=== PATIENT | female | born 1945 | race Caucasian/White ===

== ENCOUNTER → 2016-08-26 | Day surgery (SDC) | payer OTHER ==
[2016-08-06 11:12] VITALS: Ht 160 cm; Wt 42.7 kg
[~2016-08-26] VITALS: Ht 160 cm; Wt 42.7 kg
[~2016-08-26] MED LIST: 500ML BSS 0.3ML EPI 1:1000PF IRRIG ONE; ACETAMINOPHEN 325 MG TAB PO PRN; AMVISC PLUS 0.8ML SYRINGE INT OCU ONE; ATROPINE SULFATE 0.1 MG/ML 5ML SYR IV PRN; CALC-388 PO; ENDOCOAT 0.85ML SYRINGE INT OCU ONE; ESCI10TA17 PO; EpHEDrine SULFATE INJ 50 MG/ML AMP IV PRN; EpINEphrine INJ 1MG/ML AMP 1 MG/ML AMP ONE; LACTATED RINGER'S 1000ML 500 ML IV SCH; LEVA45AE INH; LIDOCAINE 4% OP SOLN DROP CHARGE ONE; LIDOCAINE 4% OP SOLN DROP CHARGE OPL SCH; LIDOCAINE HCL 1% MPF 2 ML VIAL ONE; LSN/10125 PO; MIDAZOLAM HCL 1 MG/ML 2ML VIAL ONE; MIX: 4ML BSS 1ML EPI 1:1000 PF TOP ONE; MOME100A INH; MOXIFLOXACIN OPH SOLN PER DROP CHARGE ONE; MULT-506 PO; NURSING VERBAL MED ORDER ONE; PANT40TA PO; POVIDONE-IODINE OP SOLN 30 ML BTL ONE; PROPARACAINE 0.5% OP SOLN PER DROP CHARGE OPL SCH; RISP1TAB68 PO; SPRIN/30 INH; SULF800T23 PO; TOBRAMYCIN/DEXAMETHASONE OPH OINT PER APPLN CHARGE ONE
[2016-08-26] MEDS: PHENYLEPHRINE HCL 2.5% OP SOLN PER DROP CHARGE OPL SCH ×3 (11:04→11:14)
[2016-08-26] MEDS: TROPICAMIDE 1% OP SOLN PER DROP CHARGE OPL SCH ×3 (11:05→11:15)
[2016-08-26] MEDS: CYCLOPENTOLATE HCL 1% OP SOLN PER DROP CHARGE OPL SCH ×3 (11:06→11:16)
[2016-08-26] MEDS: MOXIFLOXACIN OPH SOLN PER DROP CHARGE OPL SCH ×3 (11:07→11:17)
--- NOTE | 2016-08-26 11:25 | History & Physical Bridge - SC ---
H&P Re-Evaluation Bridge Note: I have examined the patient, reviewed the History & Physical and in the interval since the performance of the History & Physical I have noted the following changes of clinical significance: No changes noted. Left eye cataract surgery.
--- NOTE | 2016-08-26 12:31 | [facility] Post Operative Brief Note ---
Immediate Operative Summary Operative Date Aug 26, 2016. Pre-Operative Diagnosis Cataract Left Eye Post-Operative Diagnosis same as preop Procedure(s) Performed Left Cataract Phacoemulsification With Intraocular Lens Implant Surgeon Dr. Ko Oil Heaterman Surgeon(s) none Estimated Blood Loss 0ml Findings left cataract Specimens none per surgeon Complication(s) None Disposition
--- NOTE | 2016-08-26 12:32 | Anesthesia Progress Nt - [facility] ---
Anesthesia Post Op Note Date & Time Aug 26, 2016 at 12:31 Vital Signs Pain Intensity: 0 Vital Signs Past 12 Hours Date Time Temp Pulse Resp B/P (MAP) Pulse Ox O2 Delivery O2 Flow Rate FiO2 08/26/16 10:43 36.7 62 20 191/80 (117) 92 Room Air 179/81 (113) Notes Mental Status: alert / awake / arousable, participated in evaluation Pt Amnestic to Procedure: Yes Nausea / Vomiting: adequately controlled Pain: adequately controlled Airway Patency, RR, SpO2: stable & adequate BP & HR: stable & adequate Hydration State: stable & adequate Anesthetic Complications: no major complications apparent
--- NOTE | 2016-08-26 12:32 | [facility] Operative Report ---
Operative Report Date of Service Aug 26, 2016. Operative Report Phaco with monofocal IOL DATE OF OPERATION: 08/26/16 PREOPERATIVE DIAGNOSIS: Senile nuclear cataract, left eye POSTOPERATIVE DIAGNOSIS: Senile nuclear cataract, left eye PROCEDURE PERFORMED: Phacoemulsification with intraocular lens implantation, left eye SURGEON: Dr. Mars Ko ANESTHESIA: Topical with 1% intracameral lidocaine and monitored anesthesia care COMPLICATIONS: None DESCRIPTION OF PROCEDURE: After positively identifying the patient both verbally and by wristband in the preoperative area, the left eye was marked as the operative eye. The patient was then brought back to the operating room by the anesthesia and nursing staff where they were given a drop of Lidocaine and betadine into the operative eye. They were then sterilely prepped and draped in the standard fashion typical for ophthalmic surgery. Steri-strips were placed along the upper eyelids to keep the lashes back, and a lid speculum was placed into the operative eye. At this point, a documented time out was performed with members of the ophthalmology, nursing, and anesthesia staffs all agreeing upon the correct patient, correct location for surgery, correct procedure, and correct type and power of intraocular lens to be implanted. The microscope was then swung into position. First, a paracentesis wound was made using a sideport blade. Then, in sequence, 1% preservative-free lidocaine followed by Endocoat viscoelastic was injected into the anterior chamber. Next , the main incision was made with a keratome blade in triplanar fashion. A Malyugin ring was inserted due to poor pupil dilation. A sharp cystotome was introduced into the eye and used to create a tear in the anterior capsule, which was directed into a continuous curvilinear capsulorrhexis using Utrata forceps. Hydrodissection was then performed with BSS on a flat-tip cannula. Next, the phacoemulsification handpiece was introduced into the eye and used to remove the nucleus in a [id number] fashion. This was done without complication and then the irrigation-aspiration handpiece was introduced into the eye and used to remove all remaining cortical and epinuclear material. Amvisc was then injected into the anterior chamber as well as into the capsular bag and using the lens injector system, an MX60 22.0 D lens, serial number [id number], and expiration date 03/2019 was injected into the capsular bag and rotated into the correct position. The Malyugin ring was removed. Next, the irrigation-aspiration handpiece was used to remove all remaining Amvisc. BSS was used to hydrate the main wound, and then BSS was injected into the paracentesis site to reach physiologic pressure and then the main wound was checked and found to be watertight. The patient was given drops of Vigamox and Tobradex ointment into the operative eye, and then the surrounding area was cleaned and dried. A clear plastic shield was placed over the eye and the patient was then sat up and taken from the operating room by the anesthesia staff having tolerated the procedure well and suffering no complications. DISPOSITION: The patient was returned to the recovery room in stable condition. I attest to the content of the Intraoperative Record and any orders documented therein. Any exceptions are noted below.
--- NOTE | 2016-08-26 12:33 | Discharge Instructions-SurgCtr ---
Discharge Instructions Date of Service Aug 26, 2016. Visit Reason for Visit: Left Cataract Discharge Discharge Diagnosis / Problem: left cataract Discharge Goals Goal(s): Decrease discomfort, Improve function Activity Recommendations Activity Limitations: as noted below Anesthesia . Post Anesthesia Instructions: If you have had General Anesthesia or IV Sedation: * Do not drive today. * Resume driving when surgeon permits. * Do not make important decisions or sign legal documents today. * Call surgeon for: 1. Temperature elevations greater than 101 degrees F. 2. Uncontrollable pain. 3. Excessive bleeding. 4. Persistent nausea and vomiting. 5. Medication intolerance (nausea, vomiting or rash). * For nausea and vomiting use only clear liquids such as: tea, soda, bouillon until nausea subsides, then gradually increase diet as tolerated. * If you have any concerns or questions, call your surgeon's office. If physician is unavailable and it is an emergency, call 911 or go to the nearest emergency room. . Instructions / Follow-Up Instructions / Follow-Up ACTIVITY RECOMMENDATIONS: * Light activities. * You may walk outside, read, watch television. * You may notice redness on the white part of the eye and some blurry vision - this is normal. MEDICATIONS: Resume previous medications unless instructed otherwise by your surgeon. Start all eye drops at 2:30 pm today: * Eye drops (today): Durezol - one drop in operative eye 4 times daily Polytrim - one drop in operative eye every 2 hours while awake SPECIAL CARE INSTRUCTIONS: * Tape plastic shield over eye to sleep at night. Call your doctor at with any concerns or problems. FOLLOW UP VISIT: Follow-up with Dr Ko at [place] office as scheduled. Diet Recommendations Home Diet: no limitations Procedures Procedures Performed: Left Cataract Phacoemulsification With Intraocular Lens Implant Pending Studies Studies pending at discharge: no Medical Emergencies . Who to Call and When: Medical Emergencies: If at any time you feel your situation is an emergency, please call 911 immediately. . Non-Emergent Contact Non-Emergency issues call your: Surgeon . . "Provider Documentation" section prepared by Mars Ko. .
[2016-08-26 13:07] VITALS: BP 137/68; PULSE 77; TEMP 36.7; O2SAT 95
== END | disposition home or self-care (01) ==
LOC: X.SURG 10:24
PROVIDERS: ATTEND Ophthalmology
DX: H25.12 Age-related nuclear cataract, left eye (principal); I10 Essential (primary) hypertension; J44.9 Chronic obstructive pulmonary disease, unspecified; F41.9 Anxiety disorder, unspecified; F32.9 Major depressive disorder, single episode, unspecified; Z68.1 Body mass index [BMI] 19.9 or less, adult

== ENCOUNTER → 2016-09-30 | Day surgery (SDC) | payer OTHER ==
[2016-09-15 15:57] VITALS: Ht 160 cm; Wt 42.7 kg
[~2016-09-30] VITALS: Ht 160 cm; Wt 42.7 kg
[~2016-09-30] MED LIST changes: +BSS FLUSH ONE; +CYCLOPENTOLATE HCL 1% OP SOLN PER DROP CHARGE OPR ONE; +FENTANYL CITRATE INJ 50 MCG/1 ML 2 ML VIAL IV PRN; +FLUMAZENIL 0.1 MG/1 ML 10 ML VIAL IV PRN; +HYDROmorphone INJ 2 MG/ML SYR/VIAL IV PRN; +LABETALOL HCL IV 5 MG/ML 20ML IV PRN; -LIDOCAINE 4% OP SOLN DROP CHARGE OPL SCH; +LIDOCAINE 4% OP SOLN DROP CHARGE OPR SCH; +MEPERIDINE HCL 25 MG/ML CARP IV PRN; +NALOXONE HCL 0.4 MG/1 ML VIAL/CARP IV PRN; +ONDANSETRON INJ 2 MG/ML 2 ML VIAL IV PRN; +PHENYLEPHRINE 100MCG/ML 5ML SYR IV PRN; +PHENYLEPHRINE HCL 2.5% OP SOLN PER DROP CHARGE OPR ONE; -PROPARACAINE 0.5% OP SOLN PER DROP CHARGE OPL SCH; +PROPARACAINE 0.5% OP SOLN PER DROP CHARGE OPR SCH; -SULF800T23 PO; +TROPICAMIDE 1% OP SOLN PER DROP CHARGE OPR ONE
[2016-09-30] MEDS: PHENYLEPHRINE HCL 2.5% OP SOLN PER DROP CHARGE OPR SCH ×3 (08:12→08:22)
[2016-09-30] MEDS: TROPICAMIDE 1% OP SOLN PER DROP CHARGE OPR SCH ×3 (08:13→08:23)
[2016-09-30] MEDS: CYCLOPENTOLATE HCL 1% OP SOLN PER DROP CHARGE OPR SCH ×3 (08:14→08:24)
[2016-09-30] MEDS: MOXIFLOXACIN OPH SOLN PER DROP CHARGE OPR SCH ×3 (08:15→08:25)
--- NOTE | 2016-09-30 08:25 | History & Physical Bridge - [place] ---
H&P Re-Evaluation Bridge Note: I have examined the patient, reviewed the History & Physical and in the interval since the performance of the History & Physical I have noted the following changes of clinical significance: No changes noted. Right eye cataract surgery.
--- NOTE | 2016-09-30 09:32 | [facility] Post Operative Brief Note ---
Immediate Operative Summary Operative Date Sep 30, 2016. Pre-Operative Diagnosis Cataract Right Eye Post-Operative Diagnosis Same Procedure(s) Performed Right Cataract Phacoemulsification With Intraocular Lens Implant Surgeon Dr. Ko Blade Balancer Surgeon(s) None Estimated Blood Loss 0 Findings right cataract Specimens None Complication(s) None Disposition
[2016-09-30 09:34] VITALS: TEMP 36.2
--- NOTE | 2016-09-30 09:34 | [facility] Operative Report ---
Operative Report Date of Service Sep 30, 2016. Operative Report Phaco with monofocal IOL DATE OF OPERATION: 09/30/16 PREOPERATIVE DIAGNOSIS: Senile nuclear cataract, right eye POSTOPERATIVE DIAGNOSIS: Senile nuclear cataract, right eye PROCEDURE PERFORMED: Phacoemulsification with intraocular lens implantation, right eye SURGEON: Dr. Mars Ko ANESTHESIA: Topical with 1% intracameral lidocaine and monitored anesthesia care COMPLICATIONS: None DESCRIPTION OF PROCEDURE: After positively identifying the patient both verbally and by wristband in the preoperative area, the right eye was marked as the operative eye. The patient was then brought back to the operating room by the anesthesia and nursing staff where they were given a drop of Lidocaine and betadine into the operative eye. They were then sterilely prepped and draped in the standard fashion typical for ophthalmic surgery. Steri-strips were placed along the upper eyelids to keep the lashes back, and a lid speculum was placed into the operative eye. At this point, a documented time out was performed with members of the ophthalmology, nursing, and anesthesia staffs all agreeing upon the correct patient, correct location for surgery, correct procedure, and correct type and power of intraocular lens to be implanted. The microscope was then swung into position. First, a paracentesis wound was made using a sideport blade. Then, in sequence, 1% preservative-free lidocaine followed by Endocoat viscoelastic was injected into the anterior chamber. Next , the main incision was made with a keratome blade in triplanar fashion. A Malyugin ring was inserted due to poor pupil dilation. A sharp cystotome was introduced into the eye and used to create a tear in the anterior capsule, which was directed into a continuous curvilinear capsulorrhexis using Utrata forceps. Hydrodissection was then performed with BSS on a flat-tip cannula. Next, the phacoemulsification handpiece was introduced into the eye and used to remove the nucleus in a [id number] fashion. This was done without complication and then the irrigation-aspiration handpiece was introduced into the eye and used to remove all remaining cortical and epinuclear material. Amvisc was then injected into the anterior chamber as well as into the capsular bag and using the lens injector system, an MX60 22.5 D lens, serial number [id number], and expiration date 12/2018 was injected into the capsular bag and rotated into the correct position. The Malyugin ring was removed. Next, the irrigation-aspiration handpiece was used to remove all remaining Amvisc. BSS was used to hydrate the main wound, and then BSS was injected into the paracentesis site to reach physiologic pressure and then the main wound was checked and found to be watertight. The patient was given drops of Vigamox and Tobradex ointment into the operative eye, and then the surrounding area was cleaned and dried. A clear plastic shield was placed over the eye and the patient was then sat up and taken from the operating room by the anesthesia staff having tolerated the procedure well and suffering no complications. DISPOSITION: The patient was returned to the recovery room in stable condition. I attest to the content of the Intraoperative Record and any orders documented therein. Any exceptions are noted below.
--- NOTE | 2016-09-30 09:35 | Discharge Instructions-SurgCtr ---
Discharge Instructions Date of Service Sep 30, 2016. Visit Reason for Visit: Right Cataract Discharge Discharge Diagnosis / Problem: right cataract Discharge Goals Goal(s): Decrease discomfort, Improve function Activity Recommendations Activity Limitations: as noted below Anesthesia . Post Anesthesia Instructions: If you have had General Anesthesia or IV Sedation: * Do not drive today. * Resume driving when surgeon permits. * Do not make important decisions or sign legal documents today. * Call surgeon for: 1. Temperature elevations greater than 101 degrees F. 2. Uncontrollable pain. 3. Excessive bleeding. 4. Persistent nausea and vomiting. 5. Medication intolerance (nausea, vomiting or rash). * For nausea and vomiting use only clear liquids such as: tea, soda, bouillon until nausea subsides, then gradually increase diet as tolerated. * If you have any concerns or questions, call your surgeon's office. If physician is unavailable and it is an emergency, call 911 or go to the nearest emergency room. . Instructions / Follow-Up Instructions / Follow-Up ACTIVITY RECOMMENDATIONS: * Light activities. * You may walk outside, read, watch television. * You may notice redness on the white part of the eye and some blurry vision - this is normal. MEDICATIONS: Resume previous medications unless instructed otherwise by your surgeon. Start all eye drops at 11:30 am today: * Eye drops (today): Durezol - one drop in operative eye 4 times daily Polytrim - one drop in operative eye every 2 hours while awake SPECIAL CARE INSTRUCTIONS: * Tape plastic shield over eye to sleep at night. Call your doctor at with any concerns or problems. FOLLOW UP VISIT: Follow-up with Dr Ko at [place] office as scheduled. Diet Recommendations Home Diet: no limitations Procedures Procedures Performed: Right Cataract Phacoemulsification With Intraocular Lens Implant Pending Studies Studies pending at discharge: no Medical Emergencies . Who to Call and When: Medical Emergencies: If at any time you feel your situation is an emergency, please call 911 immediately. . Non-Emergent Contact Non-Emergency issues call your: Surgeon . . "Provider Documentation" section prepared by Mars Ko. .
[2016-09-30 09:54] VITALS: BP 167/84; PULSE 79; O2SAT 94
--- NOTE | 2016-09-30 09:59 | Anesthesia Progress Nt - [facility] ---
Anesthesia Post Op Note Date & Time Sep 30, 2016 at 09:59 Vital Signs Pain Intensity: 0 Vital Signs Past 12 Hours Date Time Temp Pulse Resp B/P (MAP) Pulse Ox O2 Delivery O2 Flow Rate FiO2 09/30/16 09:34 36.2 80 16 161/79 (106) 99 Room Air 09/30/16 08:03 36.8 75 20 153/85 (107) 93 Room Air Notes Mental Status: alert / awake / arousable, participated in evaluation Pt Amnestic to Procedure: Yes Nausea / Vomiting: adequately controlled Pain: adequately controlled Airway Patency, RR, SpO2: stable & adequate BP & HR: stable & adequate Hydration State: stable & adequate Anesthetic Complications: no major complications apparent
== END | disposition home or self-care (01) ==
LOC: X.SURG 07:47
PROVIDERS: ATTEND Ophthalmology
DX: H25.11 Age-related nuclear cataract, right eye (principal); I10 Essential (primary) hypertension; J44.9 Chronic obstructive pulmonary disease, unspecified; F32.9 Major depressive disorder, single episode, unspecified; Z87.891 Personal history of nicotine dependence; Z79.899 Other long term (current) drug therapy

== ENCOUNTER 2020-03-04 09:54 | Inpatient (IN) ==
--- OUTSIDE RECORDS SUMMARY | 2020-03-04 09:57 | External Medical Summary | Continuity of Care Document ---
:1945 Author Name Serena Tinsley, Provider Address Unavailable Unavailable , Care Team Providers Name Role Phone Nellie Tinsley, Andi Unavailable [email or web address] Unavailable Unavailable Problems Active medical history not documented Allergies and Adverse Reactions Allergy history not documented Medications Medications not documented Procedures Procedures not documented Immunizations Immunizations not documented Plan of Treatment Planned Observations Planned Goals not documented Results No Known Results Results not documented
[2020-03-04] MEDS ORDERED: DEXAMETHASONE SOD INJ 10 MG/ML VIAL IV ONE (10:07)
--- NOTE | 2020-03-04 10:19 | Emergency Department Note ---
Impression & Plan COPD (chronic obstructive pulmonary disease), Hypoxia, COVID-19 ED Provider Note NAME: JOEY RAI AGE: 74 SEX: F : 1945 ARRIVES VIA: Ambulance INFORMANT: Patient ED PROVIDER(S): Luis Eduardo Moncada DO CHIEF COMPLAINT: hypoxia HPI: Patient is a 74-year-old female with a past medical history of COPD that presents the ER referred in from [facility]. She presented there as she lives with her grandson who has had multiple people around him test positive for Covid. She notes that she is always short of breath that has not significantly changed. She denies any chest pain. No belly pain, nausea, vomiting or diarrhea. She has a cough but it is unchanged. No runny nose. No loss of taste or smell. She denies any other exacerbating or remitting factors. She was sent in by ambulance from [facility] that she tested positive for Covid there and was hypoxic at 77% on room air. She admits that she is prescribed oxygen but never got it filled and has no oxygen at home. ROS: See above HPI for pertinent positives & negatives. A total of 10 systems reviewed and were otherwise negative. PAST MEDICAL HISTORY:See Below PAST SURGICAL HISTORY:See Below FAMILY HISTORY:See Below SOCIAL HISTORY:See Below HOME MEDICATIONS:See Below ALLERGIES:See Below VITALS:See Below PHYSICAL EXAMINATION: GENERAL: Sitting up in bed, alert, chronically ill-appearing, cachectic, malnourished EYE EXAM: normal conjunctiva. OROPHARYNX: no exudate, no erythema, lips, buccal mucosa, and tongue normal and mucous membranes are moist NECK: supple, no nuchal rigidity, no adenopathy, non-tender LUNGS: Wheezing bilaterally. Normal chest wall mechanics HEART: no murmurs, S1 normal and S2 normal ABDOMEN: abdomen soft, non-tender, normo-active bowel sounds, no masses, no rebound or guarding. UPPER EXTREMITIES: upper extremities are grossly normal. LOWER EXTREMITIES: No pitting edema. Calves are equal bilateral NEURO EXAM: Normal sensorium, cranial nerves II-XII grossly intact, normal speech, no gross weakness of arms, no gross weakness of legs. MEDICAL DECISION MAKING: Patient is a 74-year-old female who presents the ER referred in by [facility] that she was Covid positive found to be hypoxic at 77%. IV was established bl ood work was obtained. Labs show no significant leukocytosis or anemia. INR unremarkable. D-dimer was elevated at 1500. BMP with mild hyponatremia and hypokalemia. CO2 was elevated 34. LFTs bilirubin was unremarkable. Troponin was detectable but not elevated. Lipase was unremarkable. Chest x-ray showed no focal infiltrate. CT angio of the chest shows no PEs or pneumonia. She was given a dose of IV Decadron. Previously back in 2018 she was seen in discharge on home oxygen. She never got this filled. She has no oxygen at home. Based on her symptoms I do favor that this is multifactorial and likely chronic in combination with possibly early Covid/COPD. Patient was updated bedside. Discussed with the hospitalist for further evaluation as she has no oxygen at home. Triage Nursing notes reviewed. Prior medical records reviewed Vital Signs: reviewed and remarkable for no significant abnormalities Differential diagnosis: Differential diagnoses includes but is not limited to pneumonia, bronchitis, COPD/Asthma exacerbation, pneumothorax, pulmonary embolism, congestive heart failure, acute coronary syndrome ER treatment provided: See below Diagnostics interpreted by me: ECG: Sinus rhythm rate 84 Normal axis Peak T waves QTC 458 Cardiac Monitoring: An order was placed for continuous cardiac monitoring. The monitor shows a rate of 81 with sinus rhythm. Laboratory studies: As stated above and show below. Imaging studies: CT angio of the chest shows no acute pathology Consultation(s): Discussed with [facility] hospitalist for further evaluation ED COURSE: Procedures: none Critical Care: I have personally spent 32 minutes of critical care time in the direct management of this patient. This includes bedside care, interpretation of diagnostic studies, and testing, discussion with consultants, patient, and family members, and other required patient management activities. This 32 minutes is in excess of all separately billable procedures. Past Med/Surg History Social History Smoking Status: Former smoker Tobacco Type: Cigarettes Allergies Allergies Allergy/AdvReac Type Severity Reaction Status Date / Time benzalkonium Allergy Severe EYE BURNING Verified 09/30/16 08:01 adhesive Allergy Mild RASH Verified 09/30/16 08:01 albuterol Allergy Unknown INCREASED Verified 09/30/16 08:01 HEART RATE Cephalosporins Allergy Unknown RASH Verified 09/30/16 08:01 Macrolide Antibiotics Allergy Unknown SICK TO Verified 09/30/16 08:01 STOMACH AND SEVERE DIARRHEA nickel Allergy Unknown REDNESS/SWE Verified 09/30/16 08:01 LLING sheep derived (ovine) Allergy Unknown HIVES Verified 09/30/16 08:01 fluticasone AdvReac Intermediate BLOOD Unverified 09/30/16 08:01 PRESSURE INCREASE, HEART RATE INCREASE salmeterol AdvReac Intermediate BLOOD Unverified 09/30/16 08:01 PRESSURE INCREASE, HEART RATE INCREASE EYE DROPS Allergy Unknown EYE BURNING Uncoded 08/06/16 11:06 Home Meds Home Medications Medication Instructions Recorded Confirmed fluticasone furoate-vilanterol 1 inh INHALATION DAILY 03/04/20 03/04/20 [Breo Ellipta] lisinopril-hydrochlorothiazide 1 tab PO DAILY 03/04/20 03/04/20 pantoprazole 40 mg PO DAILY 03/04/20 03/04/20 tiotropium bromide [Spiriva with 1 cap INHALATION DAILY 03/04/20 03/04/20 HandiHaler] Results & Data (ED) Vital Signs Vital Signs - 24 hr 03/04/20 10:34 03/04/20 10:41 03/04/20 10:49 Temperature 37.9 C H Temperature Source Oral Pulse Rate 87 Pulse Rate from SpO2 Sensor Respiratory Rate 20 Respiratory Effort / Characteristics Non-Labored Respiratory Depth Normal Blood Pressure 136/73 Blood Pressure Mean 94 Pulse Oximetry 96 Oxygen Delivery Method Nasal Cannula Nasal Cannula Nasal Cannula Oxygen Flow Rate 4 4 4 Sepsis Recent Fever Within 48 Hours No Sepsis New/Unexplained Change in Mental Status N/A Sepsis Action Taken by Nursing No Action Required 03/04/20 11:00 03/04/20 11:16 03/04/20 11:17 Temperature Temperature Source Pulse Rate 85 76 84 Pulse Rate from SpO2 Sensor 84 75 84 Respiratory Rate 16 16 22 Respiratory Effort / Characteristics Respiratory Depth Blood Pressure 148/77 H 139/92 Blood Pressure Mean 94 105 Pulse Oximetry 81 L 96 82 L Oxygen Delivery Method Oxygen Flow Rate Sepsis Recent Fever Within 48 Hours Sepsis New/Unexplained Change in Mental Status Sepsis Action Taken by Nursing 03/04/20 11:20 03/04/20 11:30 03/04/20 11:31 Temperature Temperature Source Pulse Rate 81 72 Pulse Rate from SpO2 Sensor 81 80 Respiratory Rate 19 22 22 Respiratory Effort / Characteristics Respiratory Depth Blood Pressure 151/95 H Blood Pressure Mean 106 Pulse Oximetry 99 99 Oxygen Delivery Method Nasal Cannula Nasal Cannula Oxygen Flow Rate 4 4 Sepsis Recent Fever Within 48 Hours Sepsis New/Unexplained Change in Mental Status Sepsis Action Taken by Nursing 03/04/20 11:40 03/04/20 11:50 03/04/20 12:00 Temperature Temperature Source Pulse Rate 76 85 85 Pulse Rate from SpO2 Sensor 81 85 85 Respiratory Rate 22 20 25 H Respiratory Effort / Characteristics Respiratory Depth Blood Pressure Blood Pressure Mean Pulse Oximetry 100 96 98 Oxygen Delivery Method Nasal Cannula Nasal Cannula Nasal Cannula Oxygen Flow Rate 4 4 4 Sepsis Recent Fever Within 48 Hours Sepsis New/Unexplained Change in Mental Status Sepsis Action Taken by Nursing Laboratory Data Result diagrams: 03/04/20 10:40 03/04/20 10:40 Lab Results 03/04/20 03/04/20 03/04/20 Range/Units 10:40 10:40 10:40 WBC 6.67 (4.8-10.8) K/uL RBC 4.16 L (4.2-5.4) M/uL Hgb 13.5 (12.0-16.0) g/dL Hct 39.8 (37-47) % MCV 95.7 (80-100) fL MCH 32.5 (25-34) pg MCHC 33.9 (32-36) g/dL RDW Std Deviation 47.2 H (36.4-46.3) fL RDW Coeff of Sandra 13.5 (11.5-14.5) % Plt Count 203 (130-400) K/uL MPV 10.3 (7.4-10.4) fL Immature Gran % (Auto) 0.1 % Neut % (Auto) 75.3 % Lymph % (Auto) 9.4 % [place] % (Auto) 15.1 % Eos % (Auto) 0.0 % Baso % (Auto) 0.1 % Neut # (Auto) 5.01 (1.4-6.5) K/uL Lymph # (Auto) 0.63 L (1.2-3.4) K/uL [place] # (Auto) 1.01 H (0.11-0.59) K/uL Eos # (Auto) 0.00 (0-0.5) K/uL Baso # (Auto) 0.01 (0-0.2) K/uL Immature Gran # (Auto) 0.01 (0.00-0.02) K/uL PT 10.9 (9.0-12.0) Seconds INR 1.0 (0.9-1.1) APTT 27.7 (21.0-31.0) Seconds PTT Ratio 1.0 D-Dimer 1550 H* (0-500) ug/L FEU Sodium 131 L (136-145) mmol/L Potassium 3.1 L (3.5-5.1) mmol/L Chloride 90 L (98-107) mmol/L Carbon Dioxide 34 H (21-32) mmol/L Anion Gap 8.0 (3-11) BUN 18 (7-18) mg/dl Creatinine 0.85 (0.6-1.2) mg/dl Est Cr Clr Drug Dosing 39.2 ml/min Est GFR ( Amer) 79.3 Est GFR (Non-Af Amer) 68.5 BUN/Creatinine Ratio 20.8 H (10-20) Glucose 83 (70-99) mg/dl Calcium 8.5 (8.5-10.1) mg/dl Total Bilirubin 0.5 (0.2-1) mg/dl AST 37 (15-37) U/L ALT 25 (12-78) U/L Alkaline Phosphatase 64 (45-117) U/L Troponin I 0.016 (0-0.045) ng/ml Total Protein 6.9 (6.4-8.2) gm/dl Albumin 3.1 L (3.4-5.0) gm/dl Globulin 3.8 (2.5-4.0) gm/dl Albumin/Globulin Ratio 0.8 L (0.9-2) Lipase 120 (73-393) U/L Specimen Hemolysis Administered Medications Discontinued Medications Dexamethasone (Dexamethasone Sod Inj 10 Mg/Ml Vial) 6 mg IV NOW ONE Stop: 03/04/20 10:08 Last Admin: 03/04/20 11:51 Dose: 6 mg Documented by: [id number] Ioversol (Optiray 320 125ml) 118 ml IV ONCE ONE Stop: 03/04/20 12:56 Last Admin: 03/04/20 12:56 Dose: 118 ml Documented by: [id number] Discharge Plan Visit Data Chief Complaint: Illness Stated Complaint: COVID+/BREATHING DIFFICULTY ED Provider: Luis Eduardo Moncada Discharge Problem: COPD (chronic obstructive pulmonary disease), Hypoxia, COVID-19 Discharge Problem: COPD (chronic obstructive pulmonary disease) Qualifiers: COPD type: unspecified COPD Qualified Code(s): J44.9 - Chronic obstructive pulmonary disease, unspecified
--- NOTE | 2020-03-04 10:26 | XRay Report ---
SINGLE VIEW CHEST CLINICAL HISTORY: Atypical chest pain. FINDINGS: An AP, portable, upright chest radiograph is compared to study dated 06/24/2015 and correlate d with chest CT dated 06/18/2015. The examination is degraded by portable technique and patient rotati on. The cardiomediastinal silhouette is unremarkable noting atherosclerotic calcification of the thor acic aorta. There are calcified mediastinal and hilar lymph nodes. Emphysema and chronic interstitial thickening is similar to previous. There is no airspace consolidation or pleural effusion. Foci of p arenchymal scarring/atelectasis are seen throughout both lungs. There are scattered calcified granulo mas. No pneumothorax is seen. The skeletal structures are osteopenic. The bony thorax is grossly inta ct. Calcified splenic granulomas are seen in the left upper quadrant. IMPRESSION: Emphysema and chronic parenchymal changes as above with no acute cardiopulmonary abnormal ity. ACT 112: Negative or not required by law. Electronically signed by: Wily Azar M.D. 03/04/2020 10:25 AM
[2020-03-04 10:55] LABS: Basophils # (auto) 0.01 K/uL (0-0.2); Basophils % (auto) 0.1 %; Hematocrit (blood only) 39.8 % (37-47); Hemoglobin 13.5 g/dL (12.0-16.0); Immature Granulocytes # (auto) 0.01 K/uL (0.00-0.02); Immature Granulocytes % (auto) 0.1 %; Lymphocytes # (auto) 0.63 K/uL (1.2-3.4); Lymphocytes % (auto) 9.4 %; Mean Corpuscular Hemoglobin 32.5 pg (25-34); Mean Corpuscular Hgb Conc 33.9 g/dL (32-36); Mean Corpuscular Volume 95.7 fL (80-100); Mean Platelet Volume 10.3 fL (7.4-10.4); Monocytes # (auto) 1.01 K/uL (0.11-0.59); Monocytes % (auto) 15.1 %; Neutrophils # (auto) 5.01 K/uL (1.4-6.5); Neutrophils % (auto) 75.3 %; Platelet Count 203 K/uL (130-400); RDW Coefficient of Variation 13.5 % (11.5-14.5); RDW Standard Deviation 47.2 fL (36.4-46.3); Red Blood Count 4.16 M/uL (4.2-5.4); White Blood Count 6.67 K/uL (4.8-10.8)
[2020-03-04 11:09] LABS: Partial Thromboplastin Time 27.7 Seconds (21.0-31.0); Prothrombin Time 10.9 Seconds (9.0-12.0)
[2020-03-04 11:11] LABS: D Dimer 1550 ug/L FEU (0-500)
[2020-03-04 11:20] LABS: Albumin Level 3.1 gm/dl (3.4-5.0); BUN Creatinine Ratio 20.8 (10-20); Calcium 8.5 mg/dl (8.5-10.1); Creatinine Clr Calc Pharmacy 39.2 ml/min; Est GFR (African American) 79.3; Est GFR (Non-African American) 68.5; Potassium 3.1 mmol/L (3.5-5.1)
[2020-03-04 11:23] LABS: Albumin Globulin Ratio 0.8 (0.9-2); Bilirubin,Total 0.5 mg/dl (0.2-1); Globulin 3.8 gm/dl (2.5-4.0); Total Protein 6.9 gm/dl (6.4-8.2); Troponin I 0.016 ng/ml (0-0.045)
[2020-03-04] MEDS ORDERED: OPTIRAY 320 125ml IV ONE (12:55)
--- NOTE | 2020-03-04 13:08 | CT Scan Report ---
CT ANGIOGRAM OF THE CHEST CLINICAL HISTORY: Shortness of breath. Positive d-dimer. COMPARISON STUDY: CT scan dated 06/18/2015, chest x-ray dated 03/04/2020 TECHNIQUE: Following the IV administration of 118 mL of Optiray-320, CT angiogram of the thorax was p erformed from the thoracic inlet to the lung bases utilizing the pulmonary embolus protocol. Images a re reviewed in the axial, sagittal, and coronal planes. IV contrast was administered without complica tion. MIP imaging was performed. A dose lowering technique was utilized adhering to the principles o f ALARA. CT DOSE: 234.31 mGycm FINDINGS: There is a multinodular thyroid. No pathologically enlarged axillary mediastinal or hilar lymph nodes were visualized. There is aneurysmal dilatation suprarenal abdominal aorta which measures 37 mm in diameter. There were no pulmonary artery filling defects to indicate acute pulmonary embolism. No pleural effusions are visualized. There is moderate pulmonary emphysema. There is right lower lobe mucus plugging and atelectasis. This finding was present in May 2015. There is a stable 8 mm right middle lobe perifissural nodule. The re is a stable 3 mm right lower lobe perifissural nodule. IMPRESSION: 1. No evidence of acute pulmonary embolism 2. Moderate pulmonary emphysema 3. Persistent multinodular thyroid gland 4. Right lower lobe mucus plugging and atelectasis 5. 37 mm abdominal aortic aneurysm. ACT 112: Negative or not required by law. Electronically signed by: Flakito Escalante M.D. 03/04/2020 1:07 PM
[2020-03-04] MEDS ORDERED: POTASSIUM CHLORIDE CRTAB 20 MEQ TABCR PO STA (13:26)
--- NOTE | 2020-03-04 13:47 | History & Physical Report ---
Date of Service March 04, 2020 Assessment & Plan (1) COVID-19: Positive covid test at [facility] earlier today, exposure from grandson who lives with her -Will have [facility] fax over documentation from today's visit for records -Continue supplemental O2, started on daily 6mg IV Dexamethasone and Remdesivir. Offered convalescent plasma -Isolation precautions (2) Hypoxia: This is a 74-year-old female with PMH of severe COPD, nocturnal hypoxia not on O2, hypertension, GERD and other medical problems listed below who presents from [facility] with positive Covid test. -Initially hypoxic at 81% on room air. Now saturating at 97% on 4 L nasal cannula in setting of COPD, Covid + diagnosis today, 03/04/20 -Has been diagnosed with nocturnal hypoxia but is not currently and has not used home O2 in the past, so difficult to assess acute vs chronic nature of hypoxia -Continue supplemental O2 (3) COPD (chronic obstructive pulmonary disease): Severe COPD documented in outpatient chart. 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 Non-compliant with home oxygen -CO2 of 34, VBG pH of 7.37, pCO2 57- chronically retaining CO2 -Continue Breo Ellipta and Spiriva inhalers -Chest CTA with right lower lobe mucus plugging and atelectasis -consult will ordered flutter valve and chest PT -Will need oxygen 2 step test and likely script for O2 prior to discharge (4) Abdominal aortic aneurysm (AAA) 35 to 39 mm in diameter: (5) GERD (gastroesophageal reflux disease): Continue Protonix DVT Ppx: SQ Lovenox Code status: FULL PCP: Formerly Dr. Robert. Will need to establish with new [facility] PCP. Dispo: Admit to COVID unit on 2E. Discharge planning ordered. Patient seen in collaboration with Dr. Boggs. Please see addendum. (6) Body mass index (BMI) less than 19 in adult: BMI 16.2. Dietitian consult placed DVT Ppx: SC Heparin SCDs Code status: Full PCP: Giselle Robert Dispo: Plan to return home once medically stable/SW consulted to help with discharge placement... Dexamethasone, Consented for convalescent Plasma, but wants to learn more about it, Vit D3, Zinc, O2, IVFs Admission and Anticipated Discharge Date Admission Date: March 04, 2020 Anticipated date of discharge: 03/07/20 History of Present Illness 74-year-old female with a past medical history of COPD/emphysema, peptic ulcer disease for which she had a perfect ulcer, hypertension who presents to the ER after testing positive for COVID. Her grandson was exposed, he lives c her and he some symptoms, so she went with him for testing where she was found positive. She has been having fevers, chills, diarrhea. She was diagnosed with O2 dependent COPD, but has not gotten her home O2 yet. She gave consent for convalescent plasma, but wants to hear more about it for receiving it. PMH-COPD, Emphysema, Perf Peptic Ulcer, HTN PSH-Stomach Surgery/Partial Gastrectomy sec to Perf peptic Ulcer FH-Mother of Brain tumor, Father of Metastatic Cancer, All children are healthy, one Dtr Murdered Soc-Lives c and Grandson Chief Complaint: covid positive test, hypoxia Primary Care Provider: NO PCP This is a 74-year-old female with PMH of severe COPD, nocturnal hypoxia not on O2, hypertension, GERD and other medical problems listed below who presents from [facility] with positive Covid test. Patient's grandson lives with him and had Covid exposure at work, so household was encouraged to get Covid tested today. Patient found to have positive Covid test and was hypoxic at 77% on room air at [facility] today. Has documented nocturnal hypoxia and has been told that she needs oxygen in the past but has been non-compliant. Denies ever using home O2. States she has felt fine up until yesterday when she had a subjective fever, chills and diarrhea. Still feeling febrile with chills today but no recurrence of diarrhea. Denies lightheadedness, malaise, weakness, cough, sore throat, shortness of breath, loss of taste or smell. No nausea, vomiting or abdominal pain. In ED, patient has temp of 37.9 C and was initially hypoxic at 81% on room air. Now saturating at 97% on 4 L nasal cannula. Denies any shortness of breath. No leukocytosis, hemoglobin normal, D-dimer elevated at 1550. Sodium of 131, potassium 3.1, chloride 90, carbon dioxide 34. Chest CTA without evidence of acute pulmonary embolism. Moderate pulmonary emphysema, persistent multinodular thyroid gland, right lower lobe mucus plugging and atelectasis and 37 mm abdo robinson aortic aneurysm. Patient started on IV Dexamethasone in ED. Discussed plan to also start Remdesivir. Discussed option of convalescent plasma, which she will discuss further with Dr. Boggs. Allergies Allergy/AdvReac Type Severity Reaction Status Date / Time benzalkonium Allergy Severe EYE BURNING Verified 09/30/16 08:01 adhesive Allergy Mild RASH Verified 09/30/16 08:01 albuterol Allergy Unknown INCREASED Verified 09/30/16 08:01 HEART RATE Cephalosporins Allergy Unknown RASH Verified 09/30/16 08:01 Macrolide Antibiotics Allergy Unknown SICK TO Verified 09/30/16 08:01 STOMACH AND SEVERE DIARRHEA nickel Allergy Unknown REDNESS/SWE Verified 09/30/16 08:01 LLING sheep derived (ovine) Allergy Unknown HIVES Verified 09/30/16 08:01 fluticasone AdvReac Intermediate BLOOD Unverified 09/30/16 08:01 PRESSURE INCREASE, HEART RATE INCREASE salmeterol AdvReac Intermediate BLOOD Unverified 09/30/16 08:01 PRESSURE INCREASE, HEART RATE INCREASE EYE DROPS Allergy Unknown EYE BURNING Uncoded 08/06/16 11:06 Home Medications Medication Instructions Recorded Confirmed Type fluticasone furoate-vilanterol 1 inh INHALATION DAILY 03/04/20 03/04/20 History [Breo Ellipta] lisinopril-hydrochlorothiazide 1 tab PO DAILY 03/04/20 03/04/20 History pantoprazole 40 mg PO DAILY 03/04/20 03/04/20 History tiotropium bromide [Spiriva with 1 cap INHALATION DAILY 03/04/20 03/04/20 History HandiHaler] Past Med/Surg History Medical History Abdominal aortic aneurysm (AAA) 35 to 39 mm in diameter COPD (chronic obstructive pulmonary disease) "severe" GERD (gastroesophageal reflux disease) Nocturnal hypoxia Surgical History H/O breast biopsy H/O colonoscopy "adenomatous polyps, repeat 1 yr/COLONOSCOPY FLEXIBLE PROXIMAL DIAGNOSTIC performed by Lonnie Ruiz MD at END[facility] 2014" H/O exploratory laparotomy "Exploratory lap, wedge excision of mass in stomack w/ FS, hemigastrectomy, truncal vagotomy, [place] I with Dr. Jimenez peptic ulcer 2003" H/O knee surgery H/O tubal ligation Family History Other Breast cancer Thyroid disorder Social History Smoking Status: Former smoker Tobacco Type: Cigarettes Number of Years Since Quit: 3; Hx Alcohol Use: Yes Alcohol Intake Frequency Comment: rare Hx Substance Use: No Review of Systems Review of Systems: At least ten systems reviewed and negative except as noted in the HPI. Physical Exam Physical Exam: ROS-No Headache, No Visual Changes, No Nausea, No Vomiting, + Fever, + Chills, No Neck Pain or Stiffness, No Chest Pain, No Palpitations, No SOB, No HAWLEY, No Cough, No Sputum, No Wheezing, No Abdominal Pain, + Diarrhea, No Hematemesis, No Hemoptysis, No Unexpected Weight Loss, No Flank pain, No Melena, No Hematochezia, No Frequency, No Urgency, No Burning, No Hematuria, No Rashes, No Diaphoresis. Appetite is Normal Physical Exam Gen-AAO x 3, NAD, febrile, Pleasant. Head-NCAT, EOMI, PERRLA, Anicteric Sclera, No Posterior Pharyngeal Erythema Neck-Supple, No JVD, No Thyromegaly, No Masses, No LAD, No Bruits Lungs-Clear to Auscultation Bilaterally, No Rales, No Rhonchi, No Wheezing, No Crepitus Chest-No S4, +S1, +S2, No S3, No Murmurs, No Rubs, No Gallops, No Ectopy Abdomen-Soft, Bowel Sounds Present, Non Tender, Non Distended, No Hepatomegaly, No Splenomegaly, No Palpable Masses, No Rebound, No Rigidity, No Guarding Musculoskeletal-Full Range of Motion Bilaterally, No CVAT Extremities-No Cyanosis, No Clubbing, No Edema Nuero-Cranial Nerves II-XII grossly intact, Motor WNL, DTRs WNL, Strength WNL, Non Focal Psych-Normal Mood Results & Data Results & Data ([facility]) Vital Signs (Past 12 Hours) Vital Signs Temp Pulse Resp BP Pulse Ox 03/04/20 12:00 85 25 H 98 03/04/20 11:50 85 20 96 03/04/20 11:40 76 22 100 03/04/20 11:31 72 22 151/95 H 99 03/04/20 11:30 81 22 99 03/04/20 11:20 19 03/04/20 11:17 84 22 82 L 03/04/20 11:16 76 16 139/92 96 03/04/20 11:00 85 16 148/77 H 81 L 03/04/20 10:34 37.9 C H 87 20 136/73 96 Laboratory Results Short CBC 03/04/20 Range/Units 10:40 WBC 6.67 (4.8-10.8) K/uL Hgb 13.5 (12.0-16.0) g/dL Hct 39.8 (37-47) % Plt Count 203 (130-400) K/uL BMP 03/04/20 10:40 Sodium 131 L Potassium 3.1 L Chloride 90 L Carbon Dioxide 34 H BUN 18 Creatinine 0.85 Glucose 83 Calcium 8.5 Cardiac Enzymes 03/04/20 Range/Units 10:40 Troponin I 0.016 (0-0.045) ng/ml Liver Function 03/04/20 Range/Units 10:40 Total Bilirubin 0.5 (0.2-1) mg/dl AST 37 (15-37) U/L ALT 25 (12-78) U/L Alkaline Phosphatase 64 (45-117) U/L Albumin 3.1 L (3.4-5.0) gm/dl Diagnostic Findings CXR: IMPRESSION: Emphysema and chronic parenchymal changes as above with no acute cardiopulmonary abnormality. Chest CTA: IMPRESSION: 1. No evidence of acute pulmonary embolism 2. Moderate pulmonary emphysema 3. Persistent multinodular thyroid gland 4. Right lower lobe mucus plugging and atelectasis 5. 37 mm abdominal aortic aneurysm. ECG Rhythm: normal sinus Code Status & VTE Plan VTE Prophylaxis Plan VTE Prophylaxis will be ordered: Yes (1) COPD (chronic obstructive pulmonary disease) COPD type: unspecified COPD Qualified Code(s): J44.9 - Chronic obstructive pulmonary disease, unspecified
[2020-03-04 14:22] LABS: Base Excess VBG 5.3 mEq/L; HCO3 VBG 32 mmol/L; PCO2 VBG 57 mmHg (38-50); PO2 VBG 30 mmHg; pH VBG 7.37 (7.36-7.41)
[2020-03-04 14:28] LABS: Oxygen Saturation VBG < 60.0 %
[2020-03-04] MEDS ORDERED: ONDANSETRON INJ 2 MG/ML 2 ML VIAL IV PRN (15:32)
[2020-03-04] MEDS ORDERED: ACETAMINOPHEN 325 MG TAB PO PRN (15:32)
[2020-03-04] MEDS ORDERED: POLYETHYLENE (MIRALAX) 17 GM PACK PO PRN (15:32)
[2020-03-04] MEDS ORDERED: lisinopril 10 MG TAB PO ONE (15:32)
[2020-03-04] MEDS ORDERED: REMDESIVIR 200 MG in SODIUM CHLORIDE 0.9% 210 ML IV STA (15:35)
[2020-03-04] MEDS ORDERED: POTASSIUM CHLORIDE 20 MEQ in SODIUM CHLORIDE 0.9% 1000ML 1,000 ML IV SCH (15:45)
[2020-03-04] MEDS: PANTOprazole 40 MG TAB PO SCH (17:07)
[2020-03-04] MEDS: CHOLECALCIFEROL 1,000 UNITS 25 MCG TAB PO SCH (17:07)
[2020-03-04] MEDS: ZINC SULFATE 220 MG CAPSULE PO SCH (17:08)
[2020-03-04] MEDS: FLUTICASONE/VILANTEROL 100/25MCG 14 PUFFS/INHALER INH SCH (17:09)
[2020-03-04] MEDS: ENOXAPARIN INJ 30 MG/0.3 ML SYR SQ SCH (21:11)
[2020-03-04] MEDS: SODIUM CHLORIDE 0.9% 10ML FLUSH IV SCH (21:12)
--- NOTE | 2020-03-05 05:29 | Electrocardiogram Report ---
Test Reason : Blood Pressure : / mmHG Vent. Rate : 084 BPM Atrial Rate : 084 BPM P-R Int : 128 ms QRS Dur : 086 ms QT Int : 388 ms P-R-T Axes : 080 081 074 degrees QTc Int : 458 ms Normal sinus rhythm Normal ECG When compared with ECG of 24-JUN-2015 14:29, No significant change was found Confirmed by Isreal Samson ([id number]) on 03/05/2020 5:29:06 AM Referred By: REFERRED SELF Confirmed By:Isreal Samson
[2020-03-05 07:05] LABS: Hemoglobin 13.3 g/dL (12.0-16.0); Mean Corpuscular Hgb Conc 32.4 g/dL (32-36); Mean Corpuscular Volume 98.6 fL (80-100); Platelet Count 186 K/uL (130-400); RDW Coefficient of Variation 13.6 % (11.5-14.5); RDW Standard Deviation 48.6 fL (36.4-46.3); Red Blood Count 4.16 M/uL (4.2-5.4)
[2020-03-05 07:33] LABS: BUN Creatinine Ratio 28.9 (10-20); Calcium 7.3 mg/dl (8.5-10.1); Creatinine Clr Calc Pharmacy 37.5 ml/min; Est GFR (Non-African American) 83.7; Potassium 3.7 mmol/L (3.5-5.1)
[2020-03-05] MEDS: FLUTICASONE/VILANTEROL 100/25MCG 14 PUFFS/INHALER INH SCH (08:17)
[2020-03-05] MEDS: ENOXAPARIN INJ 30 MG/0.3 ML SYR SQ SCH ×2 (08:17→19:37)
[2020-03-05] MEDS: UMECLIDINIUM BROMIDE 62.5MCG/BLISTER 7 PUFFS/INHALER INH SCH (08:18)
[2020-03-05] MEDS: PANTOprazole 40 MG TAB PO SCH (08:18)
[2020-03-05] MEDS: ZINC SULFATE 220 MG CAPSULE PO SCH (08:18)
[2020-03-05] MEDS: CHOLECALCIFEROL 1,000 UNITS 25 MCG TAB PO SCH (08:18)
[2020-03-05] MEDS ORDERED: dexAMETHasone 6 MG in SYRINGE 0 ML IV SCH (09:00)
--- NOTE | 2020-03-05 17:19 | Hospitalist Progress Note ---
Date of Service March 05, 2020 Assessment & Plan (1) COVID-19: Acute hypoxic acute respiratory failure for Covid pneumonia On 3 L oxygen via nasal cannula Respiratory status stable Positive covid test at [facility] earlier today, exposure from grandson who lives with her - -Continue supplemental O2, Ordered daily 6mg IV Dexamethasone with total 10 days of treatment, can be changed to p.o. on discharged IV remdesivir for 5 days treatment Continue standard droplet and and contact precaution as per COVID-19 guideline (2) Hypoxia: Hypoxemic respiratory failure/Covid 19 pneumonitis -Initially hypoxic at 81% on room air. On 3 L oxygen via nasal cannula SPO2 95% Continue supplements oxygen, will need two-step exercise uses home oxygen prior to discharge (3) COPD (chronic obstructive pulmonary disease): Severe COPD documented in outpatient chart. 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 Non-compliant with home oxygen -CO2 of 34, VBG pH of 7.37, pCO2 57- chronically retaining CO2 -Continue Breo Ellipta and Spiriva inhalers -Chest CTA with right lower lobe mucus plugging and atelectasis -pulm eval requested Incentive spirometry, dexamethasone as per COVID-19 protocol added Mucinex Will add doxycycline empirically -Will need oxygen 2 step test and likely script for O2 prior to discharge (4) Abdominal aortic aneurysm (AAA) 35 to 39 mm in diameter: (5) GERD (gastroesophageal reflux disease): Continue Protonix DVT Ppx: SQ Lovenox for COVID-19 DVT prophylaxis protocol Code status: FULL (6) Body mass index (BMI) less than 19 in adult: Severe protein-calorie malnutrition in setting of severe COPD e/b a very low BMI 13 /low body wt 33.6 kg Nutrition consult requested Disposition: Expected to be discharged home when medically stable Admission and Anticipated Discharge Date Admission Date: March 04, 2020 Subjective 3 L oxygen via nasal cannula, afebrile, feels better since admission no fever or chills vitals been stable Review of Systems Review of Systems: All systems reviewed & are unremarkable except as noted in HPI & below Physical Exam Constitutional: WD/WN, vitals as above Eyes: + anicteric sclerae ENMT: external ear and nose normal, oropharynx normal Neck: trachea midline, no thyromegaly Respiratory: + cough; no respiratory distress Auscultation: + diminished lung sounds Cardiovascular: RRR, no murmur, no edema Gastrointestinal (Abdomen): Percussion/Palpation: abdomen soft; abdomen nontender Skin: no rashes, warm and dry Neurologic: PERRL, EOMI, accommodation nl, no face palsy, no dysarthria Psychiatric: A+Ox3, euthymic affect Results & Data Results & Data ([facility]) Vital Signs (Past 12 Hours) Vital Signs Temp Pulse Resp BP Pulse Ox 03/05/20 15:25 37 C 70 16 123/70 95 03/05/20 11:28 36.9 C 72 19 120/66 97 03/05/20 08:13 36.9 C 75 18 120/62 98 (1) COPD (chronic obstructive pulmonary disease) COPD type: unspecified COPD Qualified Code(s): J44.9 - Chronic obstructive pulmonary disease, unspecified
[2020-03-05] MEDS ORDERED: REMDESIVIR 100 MG in SODIUM CHLORIDE 0.9% 230 ML IV SCH (20:00)
[2020-03-05] MEDS: guaiFENesin 600 MG TABCR PO SCH (20:37)
[2020-03-05] MEDS: SODIUM CHLORIDE 0.9% 10ML FLUSH IV SCH (20:39)
[2020-03-05] MEDS ORDERED: DOXYCYCLINE HYCLATE 100 MG CAP PO SCH (21:00)
[2020-03-06 07:05] LABS: Hematocrit (blood only) 40.4 % (37-47); Mean Corpuscular Hemoglobin 31.7 pg (25-34); Mean Corpuscular Hgb Conc 32.2 g/dL (32-36); Mean Corpuscular Volume 98.5 fL (80-100); Mean Platelet Volume 10.9 fL (7.4-10.4); Platelet Count 181 K/uL (130-400); RDW Coefficient of Variation 13.6 % (11.5-14.5); RDW Standard Deviation 48.6 fL (36.4-46.3); White Blood Count 5.33 K/uL (4.8-10.8)
[2020-03-06 07:31] LABS: BUN Creatinine Ratio 39.2 (10-20); Calcium 7.7 mg/dl (8.5-10.1); Creatinine Clr Calc Pharmacy 48.4 ml/min; Est GFR (African American) 107.3; Est GFR (Non-African American) 92.6; Potassium 3.6 mmol/L (3.5-5.1)
--- NOTE | 2020-03-06 08:54 | Pulmonary Consultation ---
Date of Consultation March 06, 2020 Assessment & Plan (1) COPD (chronic obstructive pulmonary disease): COPD type: unspecified COPD Qualified Code(s): J44.9 - Chronic obstructive pulmonary disease, unspecified (2) Hypoxia: (3) COVID-19: Impression: 74-year-old female with obstructive lung disease. PFTs are not available. She reportedly was supposed to be on oxygen at home but was not using it. She is asymptomatic but tested positive and was found to be hypoxemic although it is unclear if this is acute or chronic. She was admitted to the hospital and is doing well clinically. Recommendations: 1. COPD: The patient likely has advanced obstructive lung disease. Seems reasonable to continue Spiriva and Breo for now with as needed albuterol. There is no indication for steroids for COPD exacerbation nor is there an indication for antibiotics. 2. Covid: The patient is asymptomatic from a pulmonary perspective and I suspect that her hypoxemia is more likely related to underlying COPD than Covid given the lack of parenchymal opacities on her CT scan. As such I would not recommend remdesivir, convalescent plasma, or dexamethasone. The patient should be assessed for oxygen and this should be set up for discharge home. There is no indication for vitamin D3 doxycycline or zinc sulfate and these will be discontinued as well 3. She can follow-up in the pulmonary clinic although I would not recommend follow-up for several weeks until her Covid is allowed to clear. PFTs can be performed at some point although again I would likely delay these for several months as it is unlikely to alter management. Thanks for the opportunity of participating in the care of this patient. Feel free to contact us if we can be of additional assistance. History of Present Illness Attending Physician: Donald Gastelum MD History of Present Illness Asked by hospitalist to evaluate this patient with hypoxemia and Covid pneumonia. History is obtained from discussion with the patient as well as reviewed electronic medical record. Patient is a 74-year-old female who is supposed to be on oxygen at home and has a history of obstructive lung disease. She had a family contact who apparently was exposed to Covid and she decided to get tested. She was asymptomatic. Her Covid test was positive and she was referred to the emergency room. She was found to be hypoxemic and placed on supplemental oxygen. She was devoid of any respiratory complaints including cough, shortness of breath, chest pain. She also does not constitutional symptoms such as fevers, chills, or night sweats. She is doing well currently and seen while sitting up eating breakfast in the [facility]. She again denies any significant respiratory problems. Allergies Allergy/AdvReac Type Severity Reaction Status Date / Time benzalkonium Allergy Severe EYE BURNING Verified 09/30/16 08:01 adhesive Allergy Mild RASH Verified 09/30/16 08:01 albuterol Allergy Unknown INCREASED Verified 09/30/16 08:01 HEART RATE Cephalosporins Allergy Unknown RASH Verified 09/30/16 08:01 Macrolide Antibiotics Allergy Unknown SICK TO Verified 09/30/16 08:01 STOMACH AND SEVERE DIARRHEA nickel Allergy Unknown REDNESS/SWE Verified 09/30/16 08:01 LLING sheep derived (ovine) Allergy Unknown HIVES Verified 09/30/16 08:01 fluticasone AdvReac Intermediate BLOOD Unverified 09/30/16 08:01 PRESSURE INCREASE, HEART RATE INCREASE salmeterol AdvReac Intermediate BLOOD Unverified 09/30/16 08:01 PRESSURE INCREASE, HEART RATE INCREASE EYE DROPS Allergy Unknown EYE BURNING Uncoded 08/06/16 11:06 Home Medications Medication Instructions Recorded Confirmed Type fluticasone furoate-vilanterol 1 inh INHALATION DAILY 03/04/20 03/04/20 History [Breo Ellipta] lisinopril-hydrochlorothiazide 1 tab PO DAILY 03/04/20 03/04/20 History pantoprazole 40 mg PO DAILY 03/04/20 03/04/20 History tiotropium bromide [Spiriva with 1 cap INHALATION DAILY 03/04/20 03/04/20 History HandiHaler] Patient History Medical History Abdominal aortic aneurysm (AAA) 35 to 39 mm in diameter COPD (chronic obstructive pulmonary disease) "severe" GERD (gastroesophageal reflux disease) Nocturnal hypoxia Surgical History H/O breast biopsy H/O colonoscopy "adenomatous polyps, repeat 1 yr/COLONOSCOPY FLEXIBLE PROXIMAL DIAGNOSTIC performed by Lonnie Ruiz MD at ENDOSCOPY [facility] 2014" H/O exploratory laparotomy "Exploratory lap, wedge excision of mass in stomack w/ FS, hemigastrectomy, truncal vagotomy, [place] I with Dr. Jimenez, peptic ulcer 2003" H/O knee surgery H/O tubal ligation Family History Other Breast cancer Thyroid disorder Social History Smoking Status: Former smoker Tobacco Type: Cigarettes Smoking End Date: 2003; Number of Years Since Quit: 3; Second Hand Exposure: Yes; Tobacco Cessation Education Requested by Patient: No Hx Alcohol Use: No Hx Substance Use: No Preferred Language: Bulgarian Communication Ability: Effective Program Management Specialist Required: No Beliefs That Will Affect Care: None Current Living Situation: Spouse Other Information That Helps Us Care for You: No Feels Safe at Home: Yes Safety Concerns: Feels Safe At This Time Assistive Devices: Oxygen - Continuous Review of Systems Review of Systems: Please refer to admission H&P for full details. Physical Exam Constitutional: WD/WN, vitals as above Neck: trachea midline, no thyromegaly Respiratory: normal respiratory effort; no respiratory distress and no labored breathing Few scattered crackles Cardiovascular: RRR, no murmur, no edema Gastrointestinal (Abdomen): normal bowel sounds, soft, nontender, no hepatosplenomegaly Musculoskeletal: Extremities: extremities normal to inspection Skin: no rashes, warm and dry Neurologic: Nonfocal exam Lymphatic: no cervical lymphadenopathy Results & Data Results & Data ([facility]) Vital Signs (Past 12 Hours) Vital Signs Temp Pulse Pulse Resp BP Pulse Ox 03/06/20 07:21 37.1 C 72 17 138/68 92 03/06/20 03:24 36.6 C 67 18 126/67 94 03/06/20 00:47 67 03/05/20 22:45 36.6 C 70 16 131/79 98 Laboratory Results 03/06/20 05:57 03/06/20 05:57 Diagnostic Findings Reviewed. Chest x-ray from 03/04/2020 demonstrated hyperinflation with flattening of the hemidiaphragms. CT of the chest demonstrated no significant parenchymal opacities. Changes consistent with obstructive lung disease were identified. Abdominal aneurysm was noted. PG Care Time/CCT Total # of Minutes Spent Total Time Spent with Patient: Total time spent is greater than 50% in coordination of care (as documented) at patient's floor/unit and/or counseling patient: Coding Level of Care Code 33849 Initial Inpt Care Lvl 3 Diagnoses COPD (chronic obstructive pulmonary disease) J44.9 COPD type: unspecified COPD Hypoxia R09.02 COVID-19 U07.1
[2020-03-06] MEDS: FLUTICASONE/VILANTEROL 100/25MCG 14 PUFFS/INHALER INH SCH (09:31)
[2020-03-06] MEDS: guaiFENesin 600 MG TABCR PO SCH ×2 (09:31→20:16)
[2020-03-06] MEDS: UMECLIDINIUM BROMIDE 62.5MCG/BLISTER 7 PUFFS/INHALER INH SCH (09:31)
[2020-03-06] MEDS: PANTOprazole 40 MG TAB PO SCH (09:32)
[2020-03-06] MEDS: ENOXAPARIN INJ 30 MG/0.3 ML SYR SQ SCH ×2 (09:32→20:16)
--- NOTE | 2020-03-06 13:59 | Hospitalist Progress Note ---
Date of Service March 06, 2020 Assessment & Plan (1) COVID-19: Acute hypoxic acute respiratory failure for Covid pneumonia On 2 L oxygen via nasal cannula Respiratory status stable Positive covid test at [facility] earlier prior to admission, exposure from grandson who lives with her Continue supplemental O2 Ordered daily 6mg IV Dexamethasone for up to 10 days of treatment IV remdesivir for up to 5 days treatment Continue standard droplet and and contact precaution as per COVID-19 guideline (2) Hypoxia: Hypoxemic respiratory failure/Covid 19 pneumonitis -Initially hypoxic at 81% on room air. On 2 L oxygen currently via nasal cannula SPO2 95% Continue supplements oxygen, will need two-step exercise uses home oxygen prior to discharge (3) COPD (chronic obstructive pulmonary disease): Severe COPD documented in outpatient chart. 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 Non-compliant with home oxygen -CO2 of 34, VBG pH of 7.37, pCO2 57- chronically retaining CO2 -Continue Breo Ellipta and Spiriva inhalers -Chest CTA with right lower lobe mucus plugging and atelectasis -pulm eval requested Incentive spirometry, dexamethasone as per COVID-19 protocol added Mucinex Will add doxycycline empirically -Will need oxygen 2 step test and likely script for O2 prior to discharge (4) Abdominal aortic aneurysm (AAA) 35 to 39 mm in diameter: (5) GERD (gastroesophageal reflux disease): Continue Protonix DVT Ppx: SQ Lovenox for COVID-19 DVT prophylaxis protocol Code status: FULL (6) Body mass index (BMI) less than 19 in adult: Severe protein-calorie malnutrition in setting of severe COPD e/b a very low BMI 13 /low body wt 33.6 kg Nutrition consult requested Disposition: Expected to be discharged home when medically stable Admission and Anticipated Discharge Date Admission Date: March 04, 2020 Subjective Pt seen in follow up of covid pna. Currently on 2 L oxygen via nasal cannula, afebrile, feels better since admission no fever or chills Review of Systems Review of Systems: All systems reviewed & are unremarkable except as noted in HPI & below At least ten systems reviewed and negative except as noted in the HPI. Constitutional: no fever and no chills Respiratory: + cough (improved) and + dyspnea (improved) Cardiovascular: no chest pain and no palpitations Gastrointestinal: no abdominal pain Physical Exam Physical Exam: Constitutional: WD/WN, vitals as above Eyes: + anicteric sclerae ENMT: external ear and nose normal, oropharynx normal Neck: trachea midline, no thyromegaly Respiratory: + cough; no respiratory distress Auscultation: + diminished lung sounds Cardiovascular: RRR, no murmur, no edema Gastrointestinal (Abdomen): Percussion/Palpation: abdomen soft; abdomen nontender Skin: no rashes, warm and dry Neurologic: PERRL, EOMI, no face palsy, no dysarthria Psychiatric: A+Ox3, euthymic affect Results & Data Results & Data ([facility]) Vital Signs (Past 12 Hours) Vital Signs Temp Pulse Pulse Resp BP Pulse Ox 03/06/20 11:16 36.8 C 62 16 129/89 90 03/06/20 08:00 76 03/06/20 07:21 37.1 C 72 17 138/68 92 03/06/20 03:24 36.6 C 67 18 126/67 94 Laboratory Results 03/06/20 03/06/20 Range/Units 05:57 05:57 WBC 5.33 (4.8-10.8) K/uL RBC 4.10 L (4.2-5.4) M/uL Hgb 13.0 (12.0-16.0) g/dL Hct 40.4 (37-47) % MCV 98.5 (80-100) fL MCH 31.7 (25-34) pg MCHC 32.2 (32-36) g/dL RDW Std Deviation 48.6 H (36.4-46.3) fL RDW Coeff of Sandra 13.6 (11.5-14.5) % Plt Count 181 (130-400) K/uL MPV 10.9 H (7.4-10.4) fL Sodium 135 L (136-145) mmol/L Potassium 3.6 (3.5-5.1) mmol/L Chloride 99 (98-107) mmol/L Carbon Dioxide 31 (21-32) mmol/L Anion Gap 5.0 (3-11) BUN 22 H (7-18) mg/dl Creatinine 0.57 L (0.6-1.2) mg/dl Est Cr Clr Drug Dosing 48.4 ml/min Est GFR ( Amer) 107.3 Est GFR (Non-Af Amer) 92.6 BUN/Creatinine Ratio 39.2 H (10-20) Glucose 85 (70-99) mg/dl Calcium 7.7 L (8.5-10.1) mg/dl Medications Administered Current Inpatient Medications Acetaminophen (Acetaminophen 325 Mg Tab) 650 mg PO Q4H PRN PRN Reason: Pain or Fever Stop: 04/03/20 15:31 Enoxaparin Sodium (Enoxaparin Inj 30 Mg/0.3 Ml Syr) 30 mg SQ Q12H IVANNA Stop: 04/03/20 19:59 Last Admin: 03/06/20 09:32 Dose: 30 mg Documented by: Fluticasone/Vilanterol (Fluticasone/Vilanterol 100/25mcg 14 Puffs/Inhaler) 1 puffs INH DAILY IVANNA Stop: 04/03/20 15:59 Last Admin: 03/06/20 09:31 Dose: 1 puffs Documented by: Guaifenesin (Guaifenesin 600 Mg Tabcr) 1,200 mg PO Q12 IVANNA Stop: 04/04/20 20:59 Last Admin: 03/06/20 09:31 Dose: 1,200 mg Documented by: Ondansetron HCl (Ondansetron Inj 2 Mg/Ml 2 Ml Vial) 4 mg IV Q6H PRN PRN Reason: Nausea Stop: 04/03/20 15:31 Pantoprazole Sodium (Pantoprazole 40 Mg Tab) 40 mg PO DAILY IVANNA Stop: 04/03/20 15:44 Last Admin: 03/06/20 09:32 Dose: 40 mg Documented by: Polyethylene Glycol (Polyethylene (Miralax) 17 Gm Pack) 17 gm PO DAILY PRN PRN Reason: Constipation Stop: 04/03/20 15:31 Sodium Chloride (Sodium Chloride 0.9% 10ml Flush) 30 ml IV Q24H IVANNA Stop: 03/08/20 21:01 Last Admin: 03/05/20 20:39 Dose: 30 ml Documented by: Umeclidinium [place] (Umeclidinium [place] 62.5mcg/Blister 7 Puffs/Inhaler) 1 puffs INH DAILY IVANNA Stop: 04/04/20 08:59 Last Admin: 03/06/20 09:31 Dose: 1 puffs Documented by: (1) COPD (chronic obstructive pulmonary disease) COPD type: unspecified COPD Qualified Code(s): J44.9 - Chronic obstructive pulmonary disease, unspecified
[2020-03-06] MEDS ORDERED: dexAMETHasone 6 MG in SYRINGE 0 ML IV SCH (14:00)
[2020-03-06] MEDS ORDERED: REMDESIVIR 100 MG in SODIUM CHLORIDE 0.9% 230 ML IV ONE (20:00)
[2020-03-06] MEDS ORDERED: SODIUM CHLORIDE 0.9% 10ML FLUSH IV ONE (21:00)
[2020-03-07 05:07] LABS: Hematocrit (blood only) 40.4 % (37-47); Hemoglobin 13.3 g/dL (12.0-16.0); Mean Corpuscular Hemoglobin 32.2 pg (25-34); Mean Corpuscular Hgb Conc 32.9 g/dL (32-36); Mean Corpuscular Volume 97.8 fL (80-100); Mean Platelet Volume 10.5 fL (7.4-10.4); Platelet Count 175 K/uL (130-400); RDW Coefficient of Variation 13.4 % (11.5-14.5); RDW Standard Deviation 48.2 fL (36.4-46.3); Red Blood Count 4.13 M/uL (4.2-5.4); White Blood Count 3.66 K/uL (4.8-10.8)
[2020-03-07 05:46] LABS: BUN Creatinine Ratio 38.5 (10-20); Calcium 7.4 mg/dl (8.5-10.1); Est GFR (African American) 110.6; Est GFR (Non-African American) 95.5; Magnesium 1.6 mg/dl (1.8-2.4); Phosphorus 2.7 mg/dl (2.5-4.9); Potassium 3.6 mmol/L (3.5-5.1)
[2020-03-07] MEDS: UMECLIDINIUM BROMIDE 62.5MCG/BLISTER 7 PUFFS/INHALER INH SCH (08:22)
[2020-03-07] MEDS: FLUTICASONE/VILANTEROL 100/25MCG 14 PUFFS/INHALER INH SCH (08:22)
[2020-03-07] MEDS: ENOXAPARIN INJ 30 MG/0.3 ML SYR SQ SCH (08:23)
[2020-03-07] MEDS: guaiFENesin 600 MG TABCR PO SCH ×2 (08:24→20:14)
[2020-03-07] MEDS: PANTOprazole 40 MG TAB PO SCH (08:24)
[2020-03-07] MEDS ORDERED: MAGNESIUM SULFATE / D5W 1 GM/100 ML BAG IV ONE (10:10)
--- NOTE | 2020-03-07 10:13 | Hospitalist Progress Note ---
Date of Service March 07, 2020 Assessment & Plan (1) COVID-19: Acute hypoxic acute respiratory failure for Covid pneumonia On 2 L oxygen via nasal cannula Respiratory status stable 2 step study done - pt requires continuous 2L of suppl. O2 Positive covid test at [facility] earlier prior to admission, exposure from grandson who lives with her Continue supplemental O2 Ordered daily 6mg IV Dexamethasone for up to 10 days of treatment IV remdesivir for up to 5 days treatment Continue standard droplet and and contact precaution as per COVID-19 guideline (2) Hypoxia: Hypoxemic respiratory failure/Covid 19 pneumonitis -Initially hypoxic at 81% on room air. On 2 L oxygen currently via nasal cannula SPO2 95% Continue supplements oxygen, had 2 step study done - requires continuous 2L of O2 Pulmonary medicine consulted - believe pt's hypoxia is also related to her COPD, will need further outpt follow up (3) COPD (chronic obstructive pulmonary disease): Severe COPD documented in outpatient chart. 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 Non-compliant with home oxygen -CO2 of 34, VBG pH of 7.37, pCO2 57- chronically retaining CO2 -Continue Breo Ellipta and Spiriva inhalers -Chest CTA with right lower lobe mucus plugging and atelectasis -pulm eval requested Incentive spirometry, dexamethasone as per COVID-19 protocol added Mucinex added doxycycline empirically - 2 step test done, script for O2 prior to discharge (4) Abdominal aortic aneurysm (AAA) 35 to 39 mm in diameter: (5) GERD (gastroesophageal reflux disease): Continue Protonix Hypomagnesemia replete, start Mag oxide follow up level as outpt DVT Ppx: SQ Lovenox for COVID-19 DVT prophylaxis protocol Code status: FULL (6) Body mass index (BMI) less than 19 in adult: Severe protein-calorie malnutrition in setting of severe COPD e/b a very low BMI 13 /low body wt 33.6 kg Nutrition consult requested Disposition: Expected to be discharged home when medically stable Admission and Anticipated Discharge Date Admission Date: March 04, 2020 Subjective Pt seen in follow up of covid pna. Currently on 2 L oxygen via nasal cannula, afebrile, feels better since admission, comfortable no fever or chills 2 step test done, pt requires continuous 2L of suppl. O2 Review of Systems Review of Systems: All systems reviewed & are unremarkable except as noted in HPI & below At least ten systems reviewed and negative except as noted in the HPI. Constitutional: no fever and no chills Respiratory: + cough (improved) and + dyspnea (improved) Cardiovascular: no chest pain and no palpitations Gastrointestinal: no abdominal pain, no nausea and no vomiting Physical Exam Physical Exam: Constitutional: WD/WN, vitals as above Eyes: + anicteric sclerae ENMT: external ear and nose normal, oropharynx normal Neck: trachea midline, no thyromegaly Respiratory: + cough (improved); no respiratory distress Auscultation: + diminished lung sounds, very mild bibasilar rhonchi, no wheezing Cardiovascular: RRR, no murmur, no edema Gastrointestinal (Abdomen): Percussion/Palpation: abdomen soft; abdomen nontender Skin: no rashes, warm and dry Neurologic: PERRL, EOMI, no face palsy, no dysarthria Psychiatric: A+Ox3, euthymic affect Results & Data Results & Data ([facility]) Vital Signs (Past 12 Hours) Vital Signs Temp Pulse Pulse Pulse Pulse Pulse Pulse 03/07/20 07:58 70 80 72 71 03/07/20 07:45 36.9 C 73 03/07/20 03:32 36.5 C 72 03/06/20 23:19 36.6 C 72 03/06/20 23:13 73 Resp Resp Resp Resp Resp BP Pulse Ox 03/07/20 07:58 18 18 18 18 03/07/20 07:45 17 123/62 92 03/07/20 03:32 18 135/71 95 03/06/20 23:19 18 114/74 94 03/06/20 23:13 Pulse Ox Pulse Ox Pulse Ox Pulse Ox 03/07/20 07:58 91 90 90 87 L 03/07/20 07:45 03/07/20 03:32 03/06/20 23:19 03/06/20 23:13 Laboratory Results 03/07/20 03/07/20 Range/Units 04:32 04:32 WBC 3.66 L (4.8-10.8) K/uL RBC 4.13 L (4.2-5.4) M/uL Hgb 13.3 (12.0-16.0) g/dL Hct 40.4 (37-47) % MCV 97.8 (80-100) fL MCH 32.2 (25-34) pg MCHC 32.9 (32-36) g/dL RDW Std Deviation 48.2 H (36.4-46.3) fL RDW Coeff of Sandra 13.4 (11.5-14.5) % Plt Count 175 (130-400) K/uL MPV 10.5 H (7.4-10.4) fL Sodium 135 L (136-145) mmol/L Potassium 3.6 (3.5-5.1) mmol/L Chloride 98 (98-107) mmol/L Carbon Dioxide 33 H (21-32) mmol/L Anion Gap 4.0 (3-11) BUN 20 H (7-18) mg/dl Creatinine 0.52 L (0.6-1.2) mg/dl Est Cr Clr Drug Dosing 54.0 ml/min Est GFR ( Amer) 110.6 Est GFR (Non-Af Amer) 95.5 BUN/Creatinine Ratio 38.5 H (10-20) Glucose 95 (70-99) mg/dl Calcium 7.4 L (8.5-10.1) mg/dl Phosphorus 2.7 (2.5-4.9) mg/dl Magnesium 1.6 L (1.8-2.4) mg/dl Medications Administered Current Inpatient Medications Acetaminophen (Acetaminophen 325 Mg Tab) 650 mg PO Q4H PRN PRN Reason: Pain or Fever Stop: 04/03/20 15:31 Enoxaparin Sodium (Enoxaparin Inj 30 Mg/0.3 Ml Syr) 15 mg SQ Q12H IVANNA Stop: 04/06/20 20:59 Fluticasone/Vilanterol (Fluticasone/Vilanterol 100/25mcg 14 Puffs/Inhaler) 1 puffs INH DAILY IVANNA Stop: 04/03/20 15:59 Last Admin: 03/07/20 08:22 Dose: 1 puffs Documented by: Guaifenesin (Guaifenesin 600 Mg Tabcr) 1,200 mg PO Q12 IVANNA Stop: 04/04/20 20:59 Last Admin: 03/07/20 08:24 Dose: 1,200 mg Documented by: Magnesium Sulfate/Dextrose (Magnesium Sulfate / D5w) 1 gm in 100 mls @ 50 mls/hr IV ONE ONE Stop: 03/07/20 12:09 Magnesium Oxide (Magnesium Oxide 400 Mg Tab) 400 mg PO BID [facility] Stop: 04/06/20 20:59 Ondansetron HCl (Ondansetron Inj 2 Mg/Ml 2 Ml Vial) 4 mg IV Q6H PRN PRN Reason: Nausea Stop: 04/03/20 15:31 Pantoprazole Sodium (Pantoprazole 40 Mg Tab) 40 mg PO DAILY [facility] Stop: 04/03/20 15:44 Last Admin: 03/07/20 08:24 Dose: 40 mg Documented by: Polyethylene Glycol (Polyethylene (Miralax) 17 Gm Pack) 17 gm PO DAILY PRN PRN Reason: Constipation Stop: 04/03/20 15:31 Umeclidinium [place] (Umeclidinium [place] 62.5mcg/Blister 7 Puffs/Inhaler) 1 puffs INH DAILY [facility] Stop: 04/04/20 08:59 Last Admin: 03/07/20 08:22 Dose: 1 puffs Documented by: (1) COPD (chronic obstructive pulmonary disease) COPD type: unspecified COPD Qualified Code(s): J44.9 - Chronic obstructive pulmonary disease, unspecified
[2020-03-07] MEDS ORDERED: dexAMETHasone 6 MG in SYRINGE 0 ML IV SCH (15:00)
[2020-03-07] MEDS ORDERED: REMDESIVIR 100mg: Days 2-5 IV SCH (20:00)
[2020-03-07] MEDS: MAGNESIUM OXIDE 400 MG TAB PO SCH (20:17)
[2020-03-07] MEDS ORDERED: ENOXAPARIN INJ 30 MG/0.3 ML SYR SQ SCH (21:00)
[2020-03-07] MEDS ORDERED: NSS 30mL Flush, Days 1-5 IV SCH (21:00)
[2020-03-08] MEDS: PANTOprazole 40 MG TAB PO SCH (08:24)
[2020-03-08] MEDS: guaiFENesin 600 MG TABCR PO SCH (08:24)
[2020-03-08] MEDS: FLUTICASONE/VILANTEROL 100/25MCG 14 PUFFS/INHALER INH SCH (08:24)
[2020-03-08] MEDS: UMECLIDINIUM BROMIDE 62.5MCG/BLISTER 7 PUFFS/INHALER INH SCH (08:24)
[2020-03-08] MEDS: MAGNESIUM OXIDE 400 MG TAB PO SCH (08:27)
[2020-03-08 09:06] LABS: BUN Creatinine Ratio 32.4 (10-20); Calcium 7.6 mg/dl (8.5-10.1); Creatinine Clr Calc Pharmacy 54.2 ml/min; Est GFR (African American) 110.6; Est GFR (Non-African American) 95.5; Magnesium 1.8 mg/dl (1.8-2.4)
[2020-03-08 09:18] LABS: Phosphorus 2.1 mg/dl (2.5-4.9)
[2020-03-08] MEDS ORDERED: SODIUM PHOSPHATE 3 MMOL/1 ML INFUSION IV STA (10:30)
--- NOTE | 2020-03-08 10:32 | Hospitalist Progress Note ---
Date of Service March 08, 2020 Assessment & Plan (1) COVID-19: Acute hypoxic acute respiratory failure for Covid pneumonia On 2 L oxygen via nasal cannula Respiratory status stable 2 step study done - pt requires continuous 2L of suppl. O2 [facility] prior to admission, exposure from grandson who lives with her Continue supplemental O2 Ordered daily 6mg IV Dexamethasone for up to 10 days of treatment IV remdesivir for up to 5 days treatment Pulmonary medicine consulted - feel that pt's hypoxia is likely secondary to underlying COPD, follow up w/ pulmonary medicine after discharge recommended. Continue standard droplet and and contact precaution as per COVID-19 guideline (2) Hypoxia: Hypoxemic respiratory failure/Covid 19 pneumonitis -Initially hypoxic at 81% on room air. On 2 L oxygen currently via nasal cannula SPO2 94% Continue supplements oxygen, had 2 step study done - requires continuous 2L of O2 Pulmonary medicine consulted - believe pt's hypoxia is also related to her COPD, will need further outpt follow up (3) COPD (chronic obstructive pulmonary disease): Severe COPD documented in outpatient chart. Does not follow with digital project coordinator. Non-compliant with home oxygen -CO2 of 34, VBG pH of 7.37, pCO2 57- chronically retaining CO2 -Continue Breo Ellipta and Spiriva inhalers -Chest CTA with right lower lobe mucus plugging and atelectasis -pulm. eval requested Incentive spirometry, dexamethasone as per COVID-19 protocol added Mucinex added doxycycline empirically initially, stopped by pulmonary - 2 step test done, script for O2 prior to discharge (4) Abdominal aortic aneurysm (AAA) 35 to 39 mm in diameter: (5) GERD (gastroesophageal reflux disease): Continue Protonix Hypomagnesemia replete, start Mag oxide follow up level as outpt DVT Ppx: SQ Lovenox for COVID-19 DVT prophylaxis protocol Code status: FULL (6) Body mass index (BMI) less than 19 in adult: Severe protein-calorie malnutrition in setting of severe COPD, very low BMI 13 /low body wt 33.6 kg Nutrition consult requested Disposition: Plan to discharge home with suppl. O2 Admission and Anticipated Discharge Date Admission Date: March 04, 2020 Subjective Pt seen in follow up of covid pna. Currently on 2 L oxygen via nasal cannula, afebrile, feels well, in NAD, comfortable no fever or chills 2 step test done, pt requires continuous 2L of suppl. O2 Pt to be discharged home Review of Systems Review of Systems: All systems reviewed & are unremarkable except as noted in HPI & below Constitutional: no fever and no chills Respiratory: no cough and no dyspnea Cardiovascular: no chest pain and no palpitations Gastrointestinal: no abdominal pain, no nausea and no vomiting Physical Exam Physical Exam: Constitutional: WD/WN, vitals as above Eyes: + anicteric sclerae ENMT: external ear and nose normal, oropharynx normal Neck: trachea midline, no thyromegaly Respiratory: + cough (improved); no respiratory distress Auscultation: + diminished lung sounds, very mild bibasilar rhonchi, no wheezing Cardiovascular: RRR, no murmur, no edema Gastrointestinal (Abdomen): Percussion/Palpation: abdomen soft; abdomen nontender Skin: no rashes, warm and dry Neurologic: PERRL, EOMI, no face palsy, no dysarthria Psychiatric: A+Ox3, euthymic affect Results & Data Results & Data ([facility]) Vital Signs (Past 12 Hours) Vital Signs Temp Pulse Resp BP Pulse Ox 03/08/20 07:09 36.7 C 69 16 168/80 H 93 03/08/20 04:13 36.5 C 71 18 143/72 H 95 03/07/20 23:26 36.6 C 71 18 143/65 H 93 Laboratory Results 03/08/20 Range/Units 08:21 Sodium 135 L (136-145) mmol/L Potassium 4.0 (3.5-5.1) mmol/L Chloride 100 (98-107) mmol/L Carbon Dioxide 31 (21-32) mmol/L Anion Gap 5.0 (3-11) BUN 17 (7-18) mg/dl Creatinine 0.52 L (0.6-1.2) mg/dl Est Cr Clr Drug Dosing 54.2 ml/min Est GFR ( Amer) 110.6 Est GFR (Non-Af Amer) 95.5 BUN/Creatinine Ratio 32.4 H (10-20) Glucose 89 (70-99) mg/dl Calcium 7.6 L (8.5-10.1) mg/dl Phosphorus 2.1 L (2.5-4.9) mg/dl Magnesium 1.8 (1.8-2.4) mg/dl Medications Administered Current Inpatient Medications Acetaminophen (Acetaminophen 325 Mg Tab) 650 mg PO Q4H PRN PRN Reason: Pain or Fever Stop: 04/03/20 15:31 Enoxaparin Sodium (Enoxaparin Inj 30 Mg/0.3 Ml Syr) 30 mg SQ Q24H IVANNA Stop: 04/06/20 20:59 Last Admin: 03/07/20 20:14 Dose: 30 mg Documented by: Fluticasone/Vilanterol (Fluticasone/Vilanterol 100/25mcg 14 Puffs/Inhaler) 1 puffs INH DAILY IVANNA Stop: 04/03/20 15:59 Last Admin: 03/08/20 08:24 Dose: 1 puffs Documented by: Guaifenesin (Guaifenesin 600 Mg Tabcr) 1,200 mg PO Q12 IVANNA Stop: 04/04/20 20:59 Last Admin: 03/08/20 08:24 Dose: 1,200 mg Documented by: Magnesium Oxide (Magnesium Oxide 400 Mg Tab) 400 mg PO BID IVANNA Stop: 04/06/20 20:59 Last Admin: 03/08/20 08:27 Dose: 400 mg Documented by: Ondansetron HCl (Ondansetron Inj 2 Mg/Ml 2 Ml Vial) 4 mg IV Q6H PRN PRN Reason: Nausea Stop: 04/03/20 15:31 Pantoprazole Sodium (Pantoprazole 40 Mg Tab) 40 mg PO DAILY IVANNA Stop: 04/03/20 15:44 Last Admin: 03/08/20 08:24 Dose: 40 mg Documented by: Polyethylene Glycol (Polyethylene (Miralax) 17 Gm Pack) 17 gm PO DAILY PRN PRN Reason: Constipation Stop: 04/03/20 15:31 Sodium Phosphate (Sodium Phosphate 3 Mmol/1 Ml Infusion) 6 mmol IV NOW STA Stop: 03/08/20 10:31 Umeclidinium [place] (Umeclidinium [place] 62.5mcg/Blister 7 Puffs/Inhaler) 1 puffs INH DAILY IVANNA Stop: 04/04/20 08:59 Last Admin: 03/08/20 08:24 Dose: 1 puffs Documented by: (1) COPD (chronic obstructive pulmonary disease) COPD type: unspecified COPD Qualified Code(s): J44.9 - Chronic obstructive pulmonary disease, unspecified
[2020-03-08] MEDS ORDERED: SODIUM PHOSPHATE 6 MMOL in 0.9 % SODIUM CHLORIDE 100 ML IV ONE (11:30)
--- NOTE | 2020-03-08 13:55 | Discharge Summary ---
Date of Service March 08, 2020 Admission HPI Per Admitting Provider This is a 74-year-old female with PMH of severe COPD, nocturnal hypoxia not on O2, hypertension, GERD and other medical problems listed below who [facility]. Patient's grandson lives with him and had Covid exposure at work, so household was encouraged to get Covid tested today. Patient found to have positive Covid test and was hypoxic at 77% [facility]. Has documented nocturnal hypoxia and has been told that she needs oxygen in the past but has been non-compliant. Denies ever using home O2. States she has felt fine up until yesterday when she had a subjective fever, chills and diarrhea. Still feeling febrile with chills today but no recurrence of diarrhea. Denies lightheadedness, malaise, weakness, cough, sore throat, shortness of breath, loss of taste or smell. No nausea, vomiting or abdominal pain. In ED, patient has temp of 37.9 C and was initially hypoxic at 81% on room air. Now saturating at 97% on 4 L nasal cannula. Denies any shortness of breath. No leukocytosis, hemoglobin normal, D-dimer elevated at 1550. Sodium of 131, potassium 3.1, chloride 90, carbon dioxide 34. Chest CTA without evidence of acute pulmonary embolism. Moderate pulmonary emphysema, persistent multinodular thyroid gland, right lower lobe mucus plugging and atelectasis and 37 mm abdominal aortic aneurysm. Patient started on IV Dexamethasone in ED. Discussed plan to also start Remdesivir. Discussed option of convalescent plasma, which she will discuss further with Dr. Boggs. Admission Exam Per Admitting Provider Physical Exam Gen-AAO x 3, NAD, febrile, Pleasant. Head-NCAT, EOMI, PERRLA, Anicteric Sclera, No Posterior Pharyngeal Erythema Neck-Supple, No JVD, No Thyromegaly, No Masses, No LAD, No Bruits Lungs-Clear to Auscultation Bilaterally, No Rales, No Rhonchi, No Wheezing, No Crepitus Chest-No S4, +S1, +S2, No S3, No Murmurs, No Rubs, No Gallops, No Ectopy Abdomen-Soft, Bowel Sounds Present, Non Tender, Non Distended, No Hepatomegaly, No Splenomegaly, No Palpable Masses, No Rebound, No Rigidity, No Guarding Musculoskeletal-Full Range of Motion Bilaterally, No CVAT Extremities-No Cyanosis, No Clubbing, No Edema Nuero-Cranial Nerves II-XII grossly intact, Motor WNL, DTRs WNL, Strength WNL, Non Focal Psych-Normal Mood Principal Diagnosis Hypoxia due to COVID 19 infection and COPD Discharge Exam Constitutional: WD/WN, vitals as above Eyes: + anicteric sclerae ENMT: external ear and nose normal, oropharynx normal Neck: trachea midline, no thyromegaly Respiratory: + cough (improved); no respiratory distress Auscultation: + diminished lung sounds, very mild bibasilar rhonchi, no wheezing Cardiovascular: RRR, no murmur, no edema Gastrointestinal (Abdomen): Percussion/Palpation: abdomen soft; abdomen nontender Skin: no rashes, warm and dry Neurologic: PERRL, EOMI, no face palsy, no dysarthria Psychiatric: A+Ox3, euthymic affect Discharge Data Allergies Allergy/AdvReac Type Severity Reaction Status Date / Time benzalkonium Allergy Severe EYE BURNING Verified 09/30/16 08:01 adhesive Allergy Mild RASH Verified 09/30/16 08:01 albuterol Allergy Unknown INCREASED Verified 09/30/16 08:01 HEART RATE Cephalosporins Allergy Unknown RASH Verified 09/30/16 08:01 Macrolide Antibiotics Allergy Unknown SICK TO Verified 09/30/16 08:01 STOMACH AND SEVERE DIARRHEA nickel Allergy Unknown REDNESS/SWE Verified 09/30/16 08:01 LLING sheep derived (ovine) Allergy Unknown HIVES Verified 09/30/16 08:01 fluticasone AdvReac Intermediate BLOOD Unverified 09/30/16 08:01 PRESSURE INCREASE, HEART RATE INCREASE salmeterol AdvReac Intermediate BLOOD Unverified 09/30/16 08:01 PRESSURE INCREASE, HEART RATE INCREASE EYE DROPS Allergy Unknown EYE BURNING Uncoded 08/06/16 11:06 Consultations 03/04/20 13:05 ED Decision to Admit Stat 03/04/20 15:32 Consult Case Management - Discharge Planning Routine 03/05/20 18:54 Consult Pulmonology Routine Ordered Studies 03/04/20 11:15 CT angio chest PE protocol Stat IMPRESSION: 1. No evidence of acute pulmonary embolism 2. Moderate pulmonary emphysema 3. Persistent multinodular thyroid gland 4. Right lower lobe mucus plugging and atelectasis 5. 37 mm abdominal aortic aneurysm. Hospital Course (1) COVID-19: Acute hypoxic acute respiratory failure for Covid pneumonia On 2 L oxygen via nasal cannula Respiratory status stable 2 step study done - pt requires continuous 2L of suppl. O2 Positive covid test at [facility] earlier prior to admission, exposure from grandson who lives with her Continue supplemental O2 Ordered daily 6mg IV Dexamethasone for up to 10 days of treatment IV remdesivir for up to 5 days treatment Pulmonary medicine consulted - feel that pt's hypoxia is likely secondary to underlying COPD, follow up w/ pulmonary medicine after discharge recommended. Continue standard droplet and and contact precaution as per COVID-19 guideline (2) Hypoxia: Hypoxemic respiratory failure/Covid 19 pneumonitis -Initially hypoxic at 81% on room air. On 2 L oxygen currently via nasal cannula SPO2 94% Continue supplements oxygen, had 2 step study done - requires continuous 2L of O2 Pulmonary medicine consulted - believe pt's hypoxia is also related to her COPD, will need further outpt follow up (3) COPD (chronic obstructive pulmonary disease): Severe COPD documented in outpatient chart. 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 Non-compliant with home oxygen -CO2 of 34, VBG pH of 7.37, pCO2 57- chronically retaining CO2 -Continue Breo Ellipta and Spiriva inhalers -Chest CTA with right lower lobe mucus plugging and atelectasis -pulm. eval requested Incentive spirometry, dexamethasone as per COVID-19 protocol added Mucinex added doxycycline empirically initially, stopped by pulmonary - 2 step test done, script for O2 prior to discharge (4) Abdominal aortic aneurysm (AAA) 35 to 39 mm in diameter: Follow up as outpt (5) GERD (gastroesophageal reflux disease): Continue Protonix Hypomagnesemia replete, start Mag oxide (discharged w/ one week supply of Mag oxide) follow up level as outpt DVT Ppx: SQ Lovenox for COVID-19 DVT prophylaxis protocol Code status: FULL (6) Body mass index (BMI) less than 19 in adult: Severe protein-calorie malnutrition in setting of severe COPD, very low BMI 13 /low body wt 33.6 kg Nutrition consult requested Disposition: Plan to discharge home with suppl. O2 Total Time Total Time Spent Total Time Spent (In Minutes): 40 Total Time Includes: Examination of the Patient, Discharge Planning, Medication Reconciliation and Communication With Other Providers Discharge Plan Discharge Items Patient Disposition: Home - Self-Care Reason For Visit: COVID+ TEST AT URGENT CARE, HYPOXIA Discharge Diagnosis: Hypoxia due to COVID 19 infection and COPD Activity: As commented below Non-emergency contact: Primary Care Provider Call non-emergency contact if: you have any medication questions and your symptoms worsen Follow-up/Referrals: Rajat Catherine DO [Outside Practitioners] - (Date & Time 03/14/2020 2:00 PM Provider Rajat Catherine DO Department [facility] PLEASE NOTE THAT THIS IS A TELEPHONE APPOINTMENT. YOUR PROVIDER WILL CALL YOU AT THE DESIGNATED TIME. IF YOU HAVE ANY QUESTIONS, PLEASE CALL ) PCP,NO [Primary Care Provider] - Diet: Regular Addtl Attending Provider Instructions: Please follow up with your primary care doctor, the appointment was scheduled for you for 03/14/2020. You will need to use supplemental oxygen 2L / min continuously. Script was provided to [facility]case sewer. When you recover it is recommended that you follow up with pulmonology (lung doctor), and have official pulmonary tests done (PFTs). Addtl Travel Nurse Provider Instructions: Home Isolation COVID-19 Instructions The following information about Home Isolation is from the CDC Website: https://www.cdc.gov/coronavirus/2019-ncov/hcp/batprqnp-uffutsv-hvkcvy.html Stay home except to get medical care People who are mildly ill with COVID-19 are able to isolate at home during their illness. You should restrict activities outside your home, except for getting medical care. Do not go to work, school, or public areas. Avoid using public transportation, ride-sharing, or taxis. Separate yourself from other people and animals in your home People: As much as possible, you should stay in a specific room and away from other people in your home. Also, you should use a separate bathroom, if available. Animals: You should restrict contact with pets and other animals while you are sick with COVID-19, just like you would around other people. Although there have not been reports of pets or other animals becoming sick with COVID-19, it is still recommended that people sick with COVID-19 limit contact with animals until more information is known about the virus. When possible, have another member of your household care for your animals while you are sick. If you are sick with COVID-19, avoid contact with your pet, including petting, snuggling, being kissed or licked, and sharing food. If you must care for your pet or be around animals while you are sick, wash your hands before and after you interact with pets and wear a face mask. Call ahead before visiting your doctor If you have a medical appointment, call the healthcare provider and tell them that you have or may have COVID-19. This will help the healthcare providers office take steps to keep other people from getting infected or exposed. Wear a face mask You should wear a face mask when you are around other people (e.g., sharing a room or vehicle) or pets and before you enter a healthcare providers office. If you are not able to wear a face mask (for example, because it causes trouble breathing), then people who live with you should not stay in the same room with you, or they should wear a face mask if they enter your room. Cover your coughs and sneezes Cover your mouth and nose with a tissue when you cough or sneeze. Throw used tissues in a lined trash can. Immediately wash your hands with soap and water for at least 20 seconds or, if soap and water are not available, clean your hands with an alcohol-based hand infusion pharmacist that contains at least 60% alcohol. Clean your hands often Wash your hands often with soap and water for at least 20 seconds, especially after blowing your nose, coughing, or sneezing; going to the bathroom; and be fore eating or preparing food. If soap and water are not readily available, use an alcohol-based hand infusion pharmacist with at least 60% alcohol, covering all surfaces of your hands and rubbing them together until they feel dry. Soap and water are the best option if hands are visibly dirty. Avoid touching your eyes, nose, and mouth with unwashed hands. Avoid sharing personal household items You should not share dishes, drinking glasses, cups, eating utensils, towels, or bedding with other people or pets in your home. After using these items, they should be washed thoroughly with soap and water. Clean all high-touch surfaces everyday High touch surfaces include counters, tabletops, doorknobs, bathroom fixtures, toilets, phones, keyboards, tablets, and bedside tables. Also, clean any surfaces that may have blood, stool, or body fluids on them. Use a household cleaning spray or wipe, according to the label instructions. Labels contain instructions for safe and effective use of the cleaning product including precautions you should take when applying the product, such as wearing gloves and making sure you have good ventilation during use of the product. Monitor your symptoms Seek prompt medical attention if your illness is worsening (e.g., difficulty breathing).Beforeseeking care, call your healthcare provider and tell them that you have, or are being evaluated for, COVID-19. Put on a face mask before you enter the facility. These steps will help the healthcare providers office t o keep other people in the office or waiting room from getting infected or exposed. Ask your healthcare provider to call the local or state health department. Persons who are placed under active monitoring or facilitated self- monitoring should follow instructions provided by their local health department or occupational health professionals, as appropriate. When working with your local health department check their available hours. If you have a medical emergency and need to call 911, notify the dispatch personnel that you have, or are being evaluated for COVID-19. If possible, put on a face mask before emergency medical services arrive. Discontinuing home isolation Patients with confirmed COVID-19 should remain under home isolation precautions until the risk of secondary transmission to others is thought to be low. The decision to discontinue home isolation precautions should be made on a [id number] basis, in consultation with healthcare providers and state and local health departments. Coronavirus disease 2019 (COVID-19) is a virus that causes a respiratory illness. It is caused by a coronavirus called 2019 novel coronavirus (2019- nCoV). There are many types of coronavirus. Coronaviruses are a very common cause of bronchitis. They may sometimes cause lung infection(pneumonia). Symptoms can range from mild to severe respiratory illness. These viruses are also foundin some animals. COVID-19 was first found in people in [facility], in late 2018. In 2020, several cases of COVID-19 have been confirmed in the [place] Public health officials are working to find the source. How the virus spreads is not yet fully known. It may be spread through droplets of fluid that a person coughs or sneezes into the air. It may be spread if you touch a surface with virus on it, such as a handle or object, and then touch your mouth. What are the symptoms of COVID-19? Some people have no symptoms or mild symptoms. Symptoms may appear 2 to 14 days after contact with the virus. Symptoms can include: Fever Coughing Trouble breathing What are possible complications from COVID-19? In many cases, this virus can cause infection (pneumonia) in both lungs. In some cases, this can cause . How is COVID-19 diagnosed? Your healthcare provider will ask about your symptoms. He or she will also ask about your recent travel and contact with sick people. Testing for the virus is only done through the [facility]. If yourhealthcare provider thinks you may have COVID- 19, he or she will work with your local health department and the CDC on testing. Follow all instructions from your healthcare provider. COVID-19 is diagnosed by: Nasal and throat swab. A cotton-tipped swab is wiped inside your nose or throat. This is done to check for viruses in your nasal mucus. Sputum culture. A small sample of mucus coughed from your lungs (sputum) is collected if you have a cough. It is checked for the virus. How is COVID-19 treated? There is currently no medicine to treat the virus. Treatment is done to help your body while it fights the virus. This is known as supportive care. Supportive care may include: Pain medicine. These include acetaminophen and ibuprofen. They are used to help ease pain and reduce fever. Bed rest. This helps your body fight the illness. For severe illness, you may need to stay in the hospital. Care during severe illness may include: IV (intravenous) fluids.These are given through a vein to help keep your body hydrated. Oxygen. Supplemental oxygen or ventilation with a breathing machine (ventilator) may be given. This is done to keep enough oxygen in your body. Are you at risk for COVID-19? If youve been to a place where people have been sick with this virus, you are at risk for infection. You are at risk if you: Recently traveled to an affected area Had contact with a sick person who recently traveled to this area Had contact with a person who was diagnosed with COVID-19 How can COVID-19 be prevented? There is no vaccine yet. The best prevention is to not have contact with the virus. The CDC advises that people should not travel to areas where there are COVID-19 outbreaks right now for any reason that is not urgent. To help prevent spreading the infection, wash your hands often, or use an alcohol-basedhand infusion pharmacist. If you are in an area with COVID-19: Wash your hands often. Or use an alcohol-based hand infusion pharmacist often. Only touch your eyes, nose, or mouth with clean hands. Dont have contact with people who are sick. Follow local instructions about being in public. For example, you may be told to not use public transport for a period of time. Stay away from markets that have live or animals. Wash your hands after touching any animals. Don't touch animals that may be sick. Dont share eating or drinking tools with sick people. Dont kiss someone who is sick. Clean surfaces often with disinfectant. If you were in an area with COVID-19 in the last 14 days: Call your healthcare provider. He or she can talk with local health staff to see what action may be needed. Follow all instructions from your provider. Take your temperature every morning and evening for at least 14 days. This is to check for fever. Keep a record of the readings. Keep watch for symptoms of the virus. Tell your provider right away if you have symptoms. If you were in an area with COVID-19 and have a fever or other symptoms: Dont panic. Keep in mind that other illnesses can cause similar symptoms. Stay away from work, school, and public places. Limit physical contact with family members. Don't kiss anyone or share eating or drinking utensils. Clean surfaces you touch with disinfectant. This is to help prevent the virus from spreading. Call your healthcare provider. Explain that you have been exposed to COVID-19 and have symptoms. Do this before going to any hospital. Wait for instructions. Keep in mind that healthcare staff may wear protective equipment such as masks, gowns, gloves, and eye protection. You may be put in a separate room. This is to prevent the possible virus from spreading. Tell the healthcare staff about recent travel. This includes local travel on public transport. Staff may need to find other people you have been in contact with. Follow all instructions the healthcare staff give you. If you have been diagnosed with COVID-19 Follow all instructions from your healthcare provider. Dont leave your home, except to get medical care. Call your healthcare providers office before going. They can prepare and give you instructions. This will help prevent the virus from spreading. Dont go to work, school, or public areas. Dont use public transport or taxis. Stay away from other people in your home. Have them wear face masks around you. Dont share household items or food. Wear a face mask if you can. This includes at home or in a medical facility. Cover your face with a tissue when you cough or sneeze. Throw the tissue away. Wash your hands. Wash your hands often. Caregivers should: Follow all instructions from healthcare staff. Wear a face mask and protective clothing as advised. Wash hands often. Keep track of the sick persons symptoms. Clean surfaces, fabrics, and laundry thoroughly. Keep other people away from the sick person. When to call your healthcare provider Call your healthcare provider: If youve recently traveled and have symptoms If you have been diagnosed with COVID-19 and your symptoms are worse To learn more To find out more about COVID-19, visit the CDC website at www.cdc.gov/coronavirus/2019-ncov/index.html. [employer]. [address] [place] [address], [place] [address]. All rights reserved. This information is not intended as a substitute for professional medical care. Always follow your healthcare professional's instructions. This information has been adapted from [employer] Pending Studies at Discharge: No Stand-Alone Forms: [facility], Sm[facility] Cessation Medications and DC Order Prescriptions: New guaifenesin [Mucinex] 600 mg Tablet Extended Release 12hr 1,200 mg PO Q12 Qty: 7 RF: 0 magnesium oxide 400 mg (241.3 mg magnesium) Tablet 400 mg PO DAILY 4 Days Qty: 7 RF: 0 Continued pantoprazole 40 mg tablet,delayed release (DR/EC) 40 mg PO DAILY RF: 0 lisinopril-hydrochlorothiazide 10-12.5 mg tablet 1 tab PO DAILY RF: 0 Spiriva with HandiHaler 18 mcg capsule, w/inhalation device 1 cap INHALATION DAILY RF: 0 Breo Ellipta 100-25 mcg/dose blister with device 1 inh INHALATION DAILY RF: 0 Discharge Orders: Discharge Order (Routine); Ordered 03/08/20 Ordered By: Donald Gastelum Admission Data Admit Date/Time: 03/04/20 13:32 Attending Provider: Donald Gastelum Admit Provider: Maurizio Boggs Primary Care Provider: PCP,NO Other Providers: Lizeth Cardoza ; Maurizio Boggs ; Gregg Chaudhari
== END 2020-03-08 15:50 | disposition home or self-care (01) | DRG 177 ==
LOC: ED 09:54 → EDINP 13:32 → SUATTDRO 13:32 → 2E 17:30